=== PATIENT | female | born 1990 | race Caucasian/White ===

== ENCOUNTER 2016-11-30 23:38 | Emergency (ER) | payer OTHER ==
[~2016-11-30] VITALS: Ht 167.6 cm; Wt 88.0 kg
[~2016-11-30 23:38] MED LIST: AMBI10TA PO; ASPI81TA82 PO; CYMB60CA PO; DUONI NEB; HYDR200T42 PO; IBUP600T26 PO; LAMO150T PO; LEVO125T48 PO; LISI-357 PO; METF-324 PO; METHO500 PO; METO50TA PO; MYCO200S PO; MYCO500T PO; OMEP20TA39 PO; ONDA4TAB7 SL; OXYC-68 PO; PERC10TA27 PO; PRAV20TA67 PO; PROV2.5T OR
[2016-11-30 23:43] VITALS: BP_SYST 178; BP_SYST 186; BP_DIAS 113; BP_DIAS 117; PULSE 94; RESP 16; TEMP 98.6; O2SAT 100
[2016-11-30] MEDS ORDERED: HYDR-3533 PO (23:55)
[2016-11-30] MEDS ORDERED: ROBA500T PO (23:55)
[2016-12-01] MEDS ORDERED: METHOCARBAMOL 500 MG TAB PO ONE
[2016-12-01] MEDS ORDERED: ACETAMINOPHEN/HYDROcodone 325 MG/5 MG TAB PO ONE
[2016-12-01] MEDS ORDERED: amLODIPine BESYLATE 5 MG TAB PO ONE
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
== END 2016-12-01 00:33 | disposition home or self-care (01) ==
LOC: NEPK 23:38
DX: S16.1XXA Strain of muscle, fascia and tendon at neck level, initial encounter (principal); I10 Essential (primary) hypertension; M25.511 Pain in right shoulder; J45.909 Unspecified asthma, uncomplicated; V43.52XA Car driver injured in collision with other type car in traffic accident, initial encounter; Y92.410 Unspecified street and highway as the place of occurrence of the external cause
CPT/HCPCS: 99283

== ENCOUNTER 2017-06-10 10:20 | Emergency (ER) | payer OTHER ==
[~2017-06-10] VITALS: Ht 160 cm; Wt 93.0 kg
[~2017-06-10 10:20] MED LIST changes: +HYDR-3533 PO; +ROBA500T PO
[2017-06-10 10:23] VITALS: BP 123/83; PULSE 83; RESP 16; TEMP 98.3; O2SAT 98
[2017-06-10] MEDS ORDERED: SODIUM CHLOR 0.9% 1000 ML INJ 1,000 ML IV SCH (11:39)
[2017-06-10] MEDS ORDERED: SODIUM CHLORIDE 0.9% FLUSH 10 ML FLUSH IV FLUSH PRN (11:45)
[2017-06-10] MEDS ORDERED: MORPHINE SULFATE 4 MG/ML INJ IV PUSH ONE (11:45)
[2017-06-10] MEDS ORDERED: ONDANSETRON HCL 4 MG/2 ML VIAL IVP ONE (11:45)
[2017-06-10] MEDS ORDERED: FAMOTIDINE 20 MG/2 ML VIAL IV PUSH ONE (11:45)
--- NOTE | 2017-06-10 11:48 | PD ---
HPI Chief Complaint: Abdominal Pain Time Seen by Provider: 11:34 Travel History International Travel<30 days: No Contact w/Intl Traveler<30days: No Traveled to known affect area: No History of Present Illness HPI Patient is a 26-year-old female who presents to emergency room with complaints of abdominal pain. Patient reports that since 2 PM yesterday afternoon, had epigastric to left upper quadrant abdominal pain which radiates her back. Patient denies any nausea or vomiting, denies any constipation or diarrhea with her symptoms. Reports that overall, she has had decreased oral intake since last night. Patient reports that pain is persisting, nothing makes her pain better or worse. Patient describes the pain as mild and progressively getting worse today. Patient denies any fevers or chills, denies any chest pain or shortness of breath, patient with no other complaints at this time. PFSH Past Medical History Asthma: Yes Autoimmune Disease: Yes (I.T.P.) Blood Disorders: Yes (ITP) Anxiety: No Depression: No Cancer: No Cardiovascular Problems: No Diabetes: No Diminished Hearing: No Endocrine: No Gastrointestinal Disorders: Yes (LUPUS, LIVER DISEASE, PCOS, ITP, SHOGRANS, GERD) Glaucoma: No Genitourinary: No Headaches: Yes Hepatitis: No Hiatal Hernia: No Hypertension: No Immune Disorder: Yes (ANTIPHOSPHOLIPID ANTIBODY SYNDROM) Musculoskeletal: No Neurologic: Yes (HEADACHES, NECK ACHES) Psychiatric: No Reproductive: No Respiratory: Yes (ASTHMA) Immunizations Current: Yes Thyroid Disease: Yes (HYPOTHYROID) ?: Not LMP: 05/25/17 Menopausal: No : 0 Past Surgical History Abdominal Surgery: Yes (APPENDECTOMY, GALLBLADDER) AICD: No Cardiac Surgery: No Ear Surgery: No Endocrine Surgery: Yes (HYPOTHYROIDISM) Eye Surgery: No Genitourinary Surgery: No Gynecologic Surgery: No Joint Replacement: No Neurologic Surgery: No Oral Surgery: No Pacemaker: No Thoracic Surgery: No Other Surgery: Yes Social History Alcohol Use: No Tobacco Use: No Substance Use: No Allergies-Medications (Allergen,Severity, Reaction): Coded Allergies: Rho(D) immune globulin (Verified Allergy, Severe, SEIZURES, 06/10/17) amoxicillin (Verified Allergy, Severe, RASH, 06/10/17) clavulanic acid (Verified Allergy, Severe, RASH, 06/10/17) egg (Verified Allergy, Severe, 06/10/17) ethinyl estradiol (Verified Allergy, Severe, Nausea/Vomiting, 06/10/17) levonorgestrel (Verified Allergy, Severe, Nausea/Vomiting, 06/10/17) Reported Meds & Prescriptions Reported Meds & Active Scripts Active Reported [ control] 1 Tab DAILY ortho-tricyclen Wellbutrin Xl 24 HR (Bupropion HCl) 300 Mg Tab 300 Mg PO DAILY Benazepril (Benazepril HCl) 20 Mg Tab 20 Mg PO DAILY Amlodipine (Amlodipine Besylate) 5 Mg Tab 5 Mg PO DAILY Metformin (Metformin HCl) 500 Mg Tab 500 Mg PO BIDPC Review of Systems General / Constitutional: No: Fever, Chills Eyes: No: Visual changes HENT: No: Headaches Cardiovascular: No: Chest Pain or Discomfort, Palpitations, Irregular Rhythm Respiratory: No: Cough, Shortness of Breath Gastrointestinal: Positive: Abdominal Pain, Loss of Appetite, No: Nausea, Vomiting, Diarrhea, Constipation Genitourinary: No: Dysuria Musculoskeletal: No: Pain Skin: No Rash Neurologic: No: Weakness Psychiatric: No: Depression Endocrine: No: Polydipsia Hematologic/Lymphatic: No: Easy Bruising Physical Exam Narrative GENERAL: NAD SKIN: Focused skin assessment warm/dry. HEAD: Atraumatic. Normocephalic. EYES: Pupils equal and round. No scleral icterus. No injection or drainage. ENT: No nasal bleeding or discharge. Mucous membranes pink and moist. NECK: Trachea midline. No JVD. CARDIOVASCULAR: Regular rate and rhythm. No murmur appreciated. RESPIRATORY: No accessory muscle use. Clear to auscultation. Breath sounds equal bilaterally. GASTROINTESTINAL: Abdomen soft, tenderness to LUQ, nondistended. Hepatic and splenic margins not palpable. MUSCULOSKELETAL: No obvious deformities. No clubbing. No cyanosis. No edema. NEUROLOGICAL: Awake and alert. No obvious cranial nerve deficits. Motor grossly within normal limits. Normal speech. PSYCHIATRIC: Anxious mood and affect; insight and judgment normal. Data Data Last Documented VS Vital Signs Date Time Temp Pulse Resp B/P (MAP) Pulse Ox O2 Delivery O2 Flow Rate FiO2 06/10/17 14:00 93 19 128/64 (85) 99 Room Air 06/10/17 10:23 98.3 Orders Orders Complete Blood Count With Diff (06/10/17 11:19) Comprehensive Metabolic Panel (06/10/17 11:19) Lipase (06/10/17 11:19) Urinalysis - C+S If Indicated (06/10/17 11:19) Ed Urine Pregnancytest Poc (06/10/17 11:19) Iv Access Insert/Monitor (06/10/17 11:39) Ecg Monitoring (06/10/17 11:39) Oximetry (06/10/17 11:39) Morphine Inj (Morphine Inj) (06/10/17 11:45) Ondansetron Inj (Zofran Inj) (06/10/17 11:45) Sodium Chlor 0.9% 1000 Ml Inj (Ns 1000 M (06/10/17 11:39) Sodium Chloride 0.9% Flush (Ns Flush) (06/10/17 11:45) Famotidine Inj (Pepcid Inj) (06/10/17 11:45) Ct Abd/Pel W/O Iv Contrast (06/10/17 11:39) Labs Laboratory Tests Test 06/10/17 11:30 White Blood Count 11.8 TH/MM3 Red Blood Count 3.91 MIL/MM3 Hemoglobin 11.7 GM/DL Hematocrit 34.4 % Mean Corpuscular Volume 87.9 FL Mean Corpuscular Hemoglobin 29.8 PG Mean Corpuscular Hemoglobin Concent 33.9 % Red Cell Distribution Width 14.4 % Platelet Count 251 TH/MM3 Mean Platelet Volume 8.0 FL Neutrophils (%) (Auto) 78.2 % Lymphocytes (%) (Auto) 11.6 % Monocytes (%) (Auto) 7.9 % Eosinophils (%) (Auto) 1.9 % Basophils (%) (Auto) 0.4 % Neutrophils # (Auto) 9.2 TH/MM3 Lymphocytes # (Auto) 1.4 TH/MM3 Monocytes # (Auto) 0.9 TH/MM3 Eosinophils # (Auto) 0.2 TH/MM3 Basophils # (Auto) 0.0 TH/MM3 CBC Comment AUTO DIFF Differential Comment AUTO DIFF CONFIRMED Urine Color YELLOW Urine Turbidity HAZY Urine pH 6.0 Urine Specific [place] 1.020 Urine Protein 300 mg/dL Urine Glucose (UA) NEG mg/dL Urine Ketones NEG mg/dL Urine Occult Blood SMALL Urine Nitrite NEG Urine Bilirubin NEG Urine Urobilinogen LESS THAN 2.0 MG/DL Urine Leukocyte Esterase NEG Urine RBC 1 /hpf Urine WBC 2 /hpf Urine Squamous Epithelial Cells 3 /hpf Urine Bacteria RARE /hpf Urine Mucus FEW /lpf Microscopic Urinalysis Comment CULT NOT INDICATED Blood Urea Nitrogen 30 MG/DL Creatinine 1.79 MG/DL Random Glucose 77 MG/DL Total Protein 8.6 GM/DL Albumin 3.6 GM/DL Calcium Level 9.9 MG/DL Alkaline Phosphatase 89 U/L Aspartate Amino Transf (AST/SGOT) 58 U/L Alanine Aminotransferase (ALT/SGPT) 104 U/L Total Bilirubin 0.9 MG/DL Sodium Level 133 MEQ/L Potassium Level 4.4 MEQ/L Chloride Level 103 MEQ/L Carbon Dioxide Level 21.5 MEQ/L Anion Gap 9 MEQ/L Estimat Glomerular Filtration Rate 35 ML/MIN Lipase 190 U/L MDM Medical Decision Making Medical Screen Exam Complete: Yes Emergency Medical Condition: Yes Medical Record Reviewed: Yes Interpretation(s) Vital Signs Date Time Temp Pulse Resp B/P (MAP) Pulse Ox O2 Delivery O2 Flow Rate FiO2 06/10/17 10:23 98.3 83 16 123/83 ( 98 Differential Diagnosis Gastritis, gastroenteritis, gastric ulcer, pancreatitis, electrolyte abnormality Narrative Course 26-year-old female who presents to emergency room with complaints of epigastric to left upper quadrant abdominal pain and radiates to her back which has been ongoing since 2 PM yesterday afternoon. During the course of the patients emergency department visit, the patients history, examination, and differential diagnosis were reviewed with the patient. The patient was placed on a rn cardiac rehab with oximetry and frequent blood pressure monitoring. The patient had a 20-gauge IV access obtained and blood work sent for analysis. The patient was initially provided IV fluids, IV Zofran, IV Pepcid The patients laboratory studies were reviewed and remarkable for: CBC & BMP Diagram 06/10/17 11:30 Total Protein 8.6 H, Albumin 3.6, Calcium Level 9.9, Alkaline Phosphatase 89, Aspartate Amino Transf (AST/SGOT) 58 H, Alanine Aminotransferase (ALT/SGPT) 104 H, Total Bilirubin 0.9 CR 1.79 which is at baseline Radiology studies were reviewed and remarkable for: Last Impressions Abdomen/Pelvis CT 06/10/17 [id number] Signed Impressions: Service Date/Time: June 14:19 - CONCLUSION: 1. Left lower lobe airspace disease. 2. Hepatosplenomegaly. 3. Hypodense liver characteristic of steatosis. 4. No other significant abnormality. Dhiraj Ferrer MD Ct of abdomen and pelvis with left lower lobe airspace disease, hepatosplenomegaly, hypodense liver characteristic of steatosis. there were no significant abnormalities. Patient is feeling much better at this time, abdomen is soft, nontender, nondistended, no peritoneal signs. Plan for patient to follow up with primary care doctor as well as career and guidance counselor, she will return to the emergency room as needed. All labs and studies as well as incidental findings were reviewed with patient in detail. She will return to ER as needed. Discussed need for her to follow up with career and guidance counselor. A copy of pt's labs and studies will be given to her at discharge as she will need to follow up with all studies from today Diagnosis Primary Impression: Abdominal pain Qualified Codes: R10.12 - Left upper quadrant pain Additional Impressions: Gastritis Qualified Codes: K29.70 - Gastritis, unspecified, without bleeding Renal insufficiency Patient Instructions: General Instructions Additional Instructions: Please provide patient with a copy of their lab work and studies at discharge* * Please follow up with your primary care doctor in 2-3 days Return to the ER if symptoms worsen or progress Return to the ER as needed Please follow-up with a career and guidance counselor as soon as possible Med/Other Pt SpecificInfo: Prescription(s) given Scripts Pantoprazole (Protonix) 40 Mg Tab 40 MG PO DAILY for Reflux, #30 TAB 0 Refills Prov: Julia Mina DO 06/10/17 Disposition: 01 DISCHARGE HOME Condition: Stable Julia Mina DO Jun 10, 2017 11:48
[2017-06-10] MEDS ORDERED: WELLTAB39 PO (11:53)
[2017-06-10] MEDS ORDERED: BENA20TA PO (11:53)
[2017-06-10] MEDS ORDERED: AMLO5TAB2 PO (11:53)
[2017-06-10] MEDS ORDERED: birth control (11:53)
[2017-06-10] MEDS ORDERED: METF500T PO (11:53)
[2017-06-10 11:54] VITALS: O2SAT 97
[2017-06-10 12:02] LABS: AUTOMATED NEUTROPHIL # 9.2 TH/MM3 (1.8-7.7); BASOPHIL % 0.4 % (0.0-2.0); EOSINOPHIL # 0.2 TH/MM3 (0-0.4); EOSINOPHIL % 1.9 % (0.0-4.0); HEMATOCRIT 34.4 % (35.0-46.0); LYMPH % 11.6 % (9.0-44.0); LYMPHOCYTE # 1.4 TH/MM3 (1.0-4.8); MEAN CELL VOLUME 87.9 FL (80.0-100.0); MEAN CORPUSCULAR HEMOGLOBIN 29.8 PG (27.0-34.0); MEAN CORPUSCULAR HGB CONC 33.9 % (32.0-36.0); MONO % 7.9 % (0.0-8.0); NEUT % 78.2 % (16.0-70.0); PLATELET COUNT 251 TH/MM3 (150-450); RED BLOOD COUNT 3.91 MIL/MM3 (4.00-5.30); RED CELL DISTRIBUTION WIDTH 14.4 % (11.6-17.2); WHITE BLOOD COUNT 11.8 TH/MM3 (4.0-11.0)
[2017-06-10 12:04] LABS: HEMO FLAGS AUTO DIFF
[2017-06-10 12:09] LABS: BACTERIA, URINE RARE /hpf; BLOOD, URINE SMALL (NEG); GLUCOSE,URINE NEG (NEG); KETONE, URINE NEG (NEG); MUCUS URINE FEW /lpf (OCC); NITRITE,URINE NEG (NEG); SQUAMOUS EPITHELIAL CELL URINE 3 /hpf (0-5); URINE COLOR YELLOW (YELLW/STRAW)
[2017-06-10 12:14] LABS: COMMENT (UR) CULT NOT INDICATED; CULTURE IF INDICATED CULT NOT INDICATED
[2017-06-10 12:16] LABS: ANION GAP 9 MEQ/L (5-15); AST (GOT) 58 U/L (15-37); BICARBONATE 21.5 MEQ/L (21.0-32.0); BLOOD UREA NITROGEN 30 MG/DL (7-18); CHLORIDE 103 MEQ/L (98-107); GLOMERULAR FILTRATION RATE 35 ML/MIN (>89); POTASSIUM 4.4 MEQ/L (3.5-5.1); SODIUM (NA) 133 MEQ/L (136-145)
[2017-06-10 12:18] LABS: ALT (GPT) 104 U/L (10-53)
[2017-06-10 12:20] LABS: ALKALINE PHOSPHATASE 89 U/L (45-117); TOTAL BILIRUBIN ADULT 0.9 MG/DL (0.2-1.0)
[2017-06-10 12:35] LABS: SCAN/DIFF AUTO DIFF CONFIRMED
[2017-06-10 14:00] VITALS: BP 128/64; PULSE 93; RESP 19; O2SAT 99
--- NOTE | 2017-06-10 14:55 | RADRPT ---
EXAM DATE/TIME: 06/10/2017 14:19 [facility] COMPARISON: No previous studies available for comparison. INDICATIONS : Epigastric pain radiating into back with nausea and vomiting ORAL CONTRAST: No oral contrast ingested. RADIATION DOSE: 16.12 CTDIvol (mGy) MEDICAL HISTORY : Lupus. Renal insufficiency, chronic. SURGICAL HISTORY : None. ENCOUNTER: Initial ACUITY: 1 day PAIN SCALE: 6/10 LOCATION: Epigastric TECHNIQUE: Volumetric scanning of the abdomen and pelvis was performed. Using automated exposure control and ad justment of the mA and/or kV according to patient size, radiation dose was kept as low as reasonably achievable to obtain optimal diagnostic quality images. DICOM format image data is available electro nically for review and comparison. FINDINGS: LOWER LUNGS: Airspace disease is identified in the left lower lobe. LIVER: Liver is diffusely hypodense and enlarged. It measures 21 cm in craniocaudad dimension. There are no focal lesions or evidence of biliary duct dilatation. SPLEEN: Moderately enlarged measuring 15 cm in craniocaudad dimension. PANCREAS: Within normal limits. KIDNEYS: Normal in size and shape. There is no mass, stone, or hydronephrosis. ADRENAL GLANDS: Within normal limits. VASCULAR: There is no aortic aneurysm. BOWEL/MESENTERY: The stomach, small bowel, and colon demonstrate no acute abnormality. There is no free intraperitone al air or fluid. ABDOMINAL WALL: Within normal limits. RETROPERITONEUM: There is no lymphadenopathy. BLADDER: No wall thickening or mass. REPRODUCTIVE: Within normal limits. INGUINAL: There is no lymphadenopathy or hernia. MUSCULOSKELETAL: Within normal limits for patient age. CONCLUSION: 1. Left lower lobe airspace disease. 2. Hepatosplenomegaly. 3. Hypodense liver characteristic of steatosis. 4. No other significant abnormality. Dhiraj Ferrer MD on June 10, 2017 at 14:50 Board Certified Radiologist. This report was verified electronically.
[2017-06-10] MEDS ORDERED: PROT40TA PO (15:12)
[2017-06-10] MEDS ORDERED: ALUMINUM/MAGNESIUM/SIMETH 30 ML CUP PO ONE (15:15)
[2017-06-10] MEDS ORDERED: LIDOCAINE VISCOUS 2% SOLN 15 ML UDC PO ONE (15:15)
== END 2017-06-10 15:54 | disposition home or self-care (01) ==
LOC: NEPD 10:20
DX: R10.12 Left upper quadrant pain (principal); K29.70 Gastritis, unspecified, without bleeding; N28.9 Disorder of kidney and ureter, unspecified; R16.2 Hepatomegaly with splenomegaly, not elsewhere classified; J45.909 Unspecified asthma, uncomplicated; D69.3 Immune thrombocytopenic purpura; M32.9 Systemic lupus erythematosus, unspecified; D68.61 Antiphospholipid syndrome; K21.9 Gastro-esophageal reflux disease without esophagitis
CPT/HCPCS: 74176; 80053; 81001; 83690; 84703; 85025; 96361; 96374; 96375; 99285; J2270; J2405; J7030

== ENCOUNTER 2017-06-12 14:25 | Emergency (ER) | payer OTHER ==
[~2017-06-12] VITALS: Ht 160 cm; Wt 100.0 kg
[~2017-06-12 14:25] MED LIST changes: -AMBI10TA PO; +AMLO5TAB2 PO; -ASPI81TA82 PO; +BENA20TA PO; -CYMB60CA PO; -DUONI NEB; -HYDR-3533 PO; -HYDR200T42 PO; -IBUP600T26 PO; -LAMO150T PO; -LEVO125T48 PO; -LISI-357 PO; -METF-324 PO; +METF500T PO; -METHO500 PO; -METO50TA PO; -MYCO200S PO; -MYCO500T PO; -OMEP20TA39 PO; -ONDA4TAB7 SL; -OXYC-68 PO; -PERC10TA27 PO; -PRAV20TA67 PO; +PROT40TA PO; -PROV2.5T OR; -ROBA500T PO; +WELLTAB39 PO; +birth control
[2017-06-12 14:28] VITALS: BP 134/87; PULSE 111; TEMP 99.5; O2SAT 98
--- NOTE | 2017-06-12 15:06 | PD ---
HPI Chief Complaint: Abdominal Pain Time Seen by Provider: 14:44 Travel History International Travel<30 days: No Contact w/Intl Traveler<30days: No Traveled to known affect area: No History of Present Illness HPI 26-year-old female presents to emergency Department with complaint of continued left upper quadrant abdominal pain that is 10 times worse after being seen 2 days ago here at [facility] for the same complaint. Pain is intermittent. She says it feels like "her body is ripping open." Pain is worse with deep breathing, eating, moving, palpation. No known relieving factors. Denies fever at home but says she had a fever when she checked in to the ER. Denies nausea, vomiting. Denies chest pain, shortness of breath. Denies change in stool or urine. Had a normal bowel movement this morning without hematochezia. Denies dysuria. Has been taking Protonix as prescribed 2 days ago with no change in symptoms. Denies any recent illness to include cough, nasal congestion, sore throat. Rates pain 7/10. Describes it as a stabbing sensation when it occurs. Dr. Gutierres with primary care provider. History of asthma, lupus, PCOS, Michael's, ITP. History of appendectomy and cholecystectomy. Allergies as listed on the chart. Has no other medical complaints. No other modifying factors or associated signs and symptoms. PFSH Past Medical History Asthma: Yes Autoimmune Disease: Yes (I.T.P.) Blood Disorders: Yes (ITP) Anxiety: No Depression: No Cancer: No Cardiovascular Problems: No Diabetes: No Diminished Hearing: No Endocrine: No Gastrointestinal Disorders: Yes (LUPUS, LIVER DISEASE, PCOS, ITP, SHOGRANS, GERD) Glaucoma: No Genitourinary: No Headaches: Yes Hepatitis: No Hiatal Hernia: No Hypertension: No Immune Disorder: Yes (ANTIPHOSPHOLIPID ANTIBODY SYNDROME) Musculoskeletal: No Neurologic: Yes (HEADACHES, NECK ACHES) Psychiatric: No Reproductive: No Respiratory: Yes (ASTHMA) Immunizations Current: Yes Migraines: Yes Thyroid Disease: Yes (HYPOTHYROID) ?: Not Menopausal: No : 0 Past Surgical History Abdominal Surgery: Yes (APPENDECTOMY, GALLBLADDER) AICD: No Appendectomy: Yes Cardiac Surgery: No Cholecystectomy: Yes Ear Surgery: No Endocrine Surgery: Yes (HYPOTHYROIDISM) Eye Surgery: No Genitourinary Surgery: No Gynecologic Surgery: No Joint Replacement: No Neurologic Surgery: No Oral Surgery: No Pacemaker: No Thoracic Surgery: No Other Surgery: Yes Social History Alcohol Use: Yes (on occasion) Tobacco Use: No Substance Use: No Allergies-Medications (Allergen,Severity, Reaction): Coded Allergies: Rho(D) immune globulin (Verified Allergy, Severe, SEIZURES, 06/12/17) amoxicillin (Verified Allergy, Severe, DENIES, 06/12/17) clavulanic acid (Verified Allergy, Severe, RASH, 06/12/17) egg (Verified Allergy, Severe, HIVES/SWELLING, 06/12/17) ethinyl estradiol (Verified Allergy, Severe, Nausea/Vomiting, 06/12/17) levonorgestrel (Verified Allergy, Severe, Nausea/Vomiting, 06/12/17) Reported Meds & Prescriptions Reported Meds & Active Scripts Active Arjay (Hydrocodone-Acetaminophen) 5 Mg-325 Mg Tab 1 Tab PO Q4H PRN Levofloxacin 500 Mg Tablet 500 Mg PO DAILY 10 Days Ibuprofen 800 Mg Tab 800 Mg PO Q6HR PRN Protonix (Pantoprazole Sodium) 40 Mg Tab 40 Mg PO DAILY Reported Qtgzqhvklp-Aoevagcfxvfbs-Uxxduxfr 50-325-40 Mg Tab 1 Tab PO Q4H PRN Do not exceed 6 tablets/day. Ventolin Hfa 18 GM Inh (Albuterol Sulfate) 90 Mcg/Act Aer 2 Puff INH Q6H PRN [ control] 1 Tab DAILY ortho-tricyclen Wellbutrin Xl 24 HR (Bupropion HCl) 300 Mg Tab 300 Mg PO DAILY Benazepril (Benazepril HCl) 20 Mg Tab 20 Mg PO DAILY Amlodipine (Amlodipine Besylate) 5 Mg Tab 5 Mg PO DAILY Metformin (Metformin HCl) 500 Mg Tab 500 Mg PO BIDPC Review of Systems Except as stated in HPI: all other systems reviewed are Neg Physical Exam Narrative GENERAL: Well-nourished, well-developed female patient, in no acute distress; low-grade fever 99.5 SKIN: Warm and dry. HEAD: Atraumatic. Normocephalic. EYES: Pupils equal and round. No scleral icterus. No injection or drainage. ENT: Mucosa pink and moist. Airway patent. NECK: Trachea midline. CHEST: Reproducible tenderness to the left lateral rib cage area; without crepitance or deformity. CARDIOVASCULAR: Regular rate and rhythm. No murmur appreciated. RESPIRATORY: No accessory muscle use. Breath sounds clear and equal bilaterally. No retractions or tachypnea. GASTROINTESTINAL: Abdomen soft, tenderness to left upper quadrant, nondistended. Patient guarding to left upper quadrant on palpation. No hepatosplenomegaly on palpation. Nonrigid. MUSCULOSKELETAL: No obvious deformities. No clubbing. No cyanosis. No edema. NEUROLOGICAL: Awake and alert. Oriented 3. No obvious cranial nerve deficits. Motor grossly within normal limits. Normal speech. PSYCHIATRIC: Appropriate mood and affect; insight and judgment normal. Data Data Last Documented VS Vital Signs Date Time Temp Pulse Resp B/P (MAP) Pulse Ox O2 Delivery O2 Flow Rate FiO2 06/12/17 16:14 84 18 140/72 (94) 97 06/12/17 14:28 99.5 Orders Orders Chest, Single Ap (06/12/17 15:06) Complete Blood Count With Diff (06/12/17 15:14) Comprehensive Metabolic Panel (06/12/17 15:14) Lipase (06/12/17 15:14) Iv Access Insert/Monitor (06/12/17 15:14) Sodium Chlor 0.9% 1000 Ml Inj (Ns 1000 M (06/12/17 15:14) Sodium Chloride 0.9% Flush (Ns Flush) (06/12/17 15:15) Ketorolac Inj (Toradol Inj) (06/12/17 15:15) Resp Incentive Spirometry (06/12/17 ) Acetamin-Hydrocod 325-5 Mg (Arjay 5-325 (06/12/17 16:15) Ed Discharge Order (06/12/17 16:13) Labs Laboratory Tests Test 06/12/17 15:20 White Blood Count 10.4 TH/MM3 Red Blood Count 3.30 MIL/MM3 Hemoglobin 10.3 GM/DL Hematocrit 28.8 % Mean Corpuscular Volume 87.4 FL Mean Corpuscular Hemoglobin 31.1 PG Mean Corpuscular Hemoglobin Concent 35.6 % Red Cell Distribution Width 14.5 % Platelet Count 258 TH/MM3 Mean Platelet Volume 8.1 FL Neutrophils (%) (Auto) 76.6 % Lymphocytes (%) (Auto) 12.6 % Monocytes (%) (Auto) 8.0 % Eosinophils (%) (Auto) 2.3 % Basophils (%) (Auto) 0.5 % Neutrophils # (Auto) 8.0 TH/MM3 Lymphocytes # (Auto) 1.3 TH/MM3 Monocytes # (Auto) 0.8 TH/MM3 Eosinophils # (Auto) 0.2 TH/MM3 Basophils # (Auto) 0.1 TH/MM3 CBC Comment DIFF FINAL Differential Comment Blood Urea Nitrogen 25 MG/DL Creatinine 1.68 MG/DL Random Glucose 100 MG/DL Total Protein 7.6 GM/DL Albumin 3.0 GM/DL Calcium Level 8.6 MG/DL Alkaline Phosphatase 91 U/L Aspartate Amino Transf (AST/SGOT) 47 U/L Alanine Aminotransferase (ALT/SGPT) 77 U/L Total Bilirubin 0.9 MG/DL Sodium Level 136 MEQ/L Potassium Level 4.6 MEQ/L Chloride Level 105 MEQ/L Carbon Dioxide Level 22.7 MEQ/L Anion Gap 8 MEQ/L Estimat Glomerular Filtration Rate 37 ML/MIN Lipase 220 U/L MDM Medical Decision Making Medical Screen Exam Complete: Yes Emergency Medical Condition: Yes Medical Record Reviewed: Yes Differential Diagnosis Splenomegaly, pancreatitis, pneumonia, muscle strain Narrative Course 26-year-old female seen for the same complaint of left upper quadrant abdominal pain 2 days ago on June 10. She had CT abdomen/pelvis which concluded his left lower lobe airspace disease, hepatosplenomegaly, steatosis. Labs 2 days ago concluded: CBC unremarkable, AST 58, ALT 104, sodium 133, BUN 30, creatinine 1.79; Urinalysis with no signs of infection. The patient was given Protonix for home. She returns with worsening and continued pain. On physical exam the patient discharged left upper quadrant abdominal pain and tenderness over the left lateral rib cage without crepitance or deformity. She denies chest pain or shortness of breath. I discussed the patient with Dr. Sanchez, my attending physician, and he agrees to plan of care. IV site obtained. Normal saline fluid bolus, CBC, CMP, lipase, chest xray, Toradol ordered. 1605: Chest x-ray concludes: Chest X-Ray 06/12/17 1506 Signed Impressions: Service Date/Time: Monday, June 12, 2017 15:09 - CONCLUSION: Left basilar infiltrate with associated effusion. Piero Barker MD Chest x-ray findings discussed with the patient. I discussed the patient with Dr. Mueller, he agrees with my treatment plan and plan for discharge. Levaquin , Lortab, ibuprofen prescribed for home. Lortab administered in the ER. Attentive spirometer provided for him for deep breathing exercises. Instructed patient to follow up with primary care provider. Patient verbalizes understanding and agreement with treatment plan. Patient is medically cleared and stable for discharge. Discussed reasons to return to the emergency department. Patient agrees with treatment plan. The patients vital signs are stable and the patient is stable for outpatient follow-up and treatment. Patient discharged home, stable and in no acute distress. Diagnosis Primary Impression: Pneumonia Qualified Codes: J18.1 - Lobar pneumonia, unspecified organism Referrals: Primary Care Physician Patient Instructions: Community Acquired Pneumonia (ED), General Instructions Departure Forms: Tests/Procedures, Work Release Enter return to work date: Jun 15, 2017 Additional Instructions: Ibuprofen or Tylenol as directed and as needed to reduce fever; may alternate ibuprofen and Tylenol as needed every 3 hours to minimize fever Use an air humidifier/turn off ceiling fans Incentives barometer every 2 hours while awake Follow-up with your primary care provider within 1 day Return immediately to the emergency department with worsening of symptoms Med/Other Pt SpecificInfo: Prescription(s) given Scripts Hydrocodone-Acetaminophen (Arjay) 5 Mg-325 Mg Tab 1 TAB PO Q4H Y for PAIN, #8 TAB 0 Refills Prov: Savana Meek 06/12/17 Levofloxacin (Levofloxacin) 500 Mg Tablet 500 MG PO DAILY for Infection for 10 Days, #10 TAB 0 Refills Prov: Savana Meek 06/12/17 Ibuprofen (Ibuprofen) 800 Mg Tab 800 MG PO Q6HR Y for PAIN, #30 TAB 0 Refills Prov: Savana Meek 06/12/17 Disposition: 01 DISCHARGE HOME Condition: Stable Savana Meek Jun 12, 2017 15:06
[2017-06-12] MEDS ORDERED: VENTAER INH (15:12)
[2017-06-12] MEDS ORDERED: BUTATAB6 PO (15:12)
[2017-06-12] MEDS ORDERED: SODIUM CHLOR 0.9% 1000 ML INJ 1,000 ML IV SCH (15:14)
[2017-06-12] MEDS ORDERED: KETOROLAC TROMETHAMINE 30 MG/ML (IVP) VIAL IV PUSH ONE (15:15)
[2017-06-12] MEDS ORDERED: SODIUM CHLORIDE 0.9% FLUSH 10 ML FLUSH IV FLUSH PRN (15:15)
--- NOTE | 2017-06-12 15:43 | RADRPT ---
EXAM DATE/TIME: 06/12/2017 15:09 [facility] COMPARISON: No previous studies available for comparison. INDICATIONS : Rib pain. MEDICAL HISTORY : Lupus. Hypertension PCOS, Hashimotos, migraines. SURGICAL HISTORY : None. ENCOUNTER: Initial ACUITY: 4 - 6 days PAIN SCORE: 10/10 LOCATION: Left chest inferior, anterior and posterior. FINDINGS: A single view of the chest demonstrates left basilar consolidation and associated effusion. Right ivory g is clear. Heart size is normal. CONCLUSION: Left basilar infiltrate with associated effusion. Piero Barker MD on June 12, 2017 at 15:41 Board Certified Radiologist. This report was verified electronically.
[2017-06-12 15:50] LABS: BASOPHIL # 0.1 TH/MM3 (0-0.2); BASOPHIL % 0.5 % (0.0-2.0); EOSINOPHIL # 0.2 TH/MM3 (0-0.4); EOSINOPHIL % 2.3 % (0.0-4.0); HEMATOCRIT 28.8 % (35.0-46.0); HEMO FLAGS DIFF FINAL; LYMPH % 12.6 % (9.0-44.0); LYMPHOCYTE # 1.3 TH/MM3 (1.0-4.8); MEAN CELL VOLUME 87.4 FL (80.0-100.0); MEAN CORPUSCULAR HEMOGLOBIN 31.1 PG (27.0-34.0); MEAN CORPUSCULAR HGB CONC 35.6 % (32.0-36.0); NEUT % 76.6 % (16.0-70.0); PLATELET COUNT 258 TH/MM3 (150-450); RED CELL DISTRIBUTION WIDTH 14.5 % (11.6-17.2); WHITE BLOOD COUNT 10.4 TH/MM3 (4.0-11.0)
[2017-06-12 15:59] LABS: ALKALINE PHOSPHATASE 91 U/L (45-117); ALT (GPT) 77 U/L (10-53); ANION GAP 8 MEQ/L (5-15); AST (GOT) 47 U/L (15-37); BICARBONATE 22.7 MEQ/L (21.0-32.0); BLOOD UREA NITROGEN 25 MG/DL (7-18); CHLORIDE 105 MEQ/L (98-107); GLOMERULAR FILTRATION RATE 37 ML/MIN (>89); POTASSIUM 4.6 MEQ/L (3.5-5.1); SODIUM (NA) 136 MEQ/L (136-145); TOTAL BILIRUBIN ADULT 0.9 MG/DL (0.2-1.0)
[2017-06-12] MEDS ORDERED: NORC5TAB PO (16:07)
[2017-06-12] MEDS ORDERED: IBUP1TAB7 PO (16:07)
[2017-06-12] MEDS ORDERED: LEVO500T8 PO (16:07)
[2017-06-12 16:14] VITALS: BP 140/72
[2017-06-12] MEDS ORDERED: ACETAMINOPHEN/HYDROcodone 325 MG/5 MG TAB PO ONE (16:15)
== END 2017-06-12 17:46 | disposition home or self-care (01) ==
LOC: NEPD 14:25
DX: J18.9 Pneumonia, unspecified organism (principal); J45.909 Unspecified asthma, uncomplicated; M32.9 Systemic lupus erythematosus, unspecified; E28.2 Polycystic ovarian syndrome; E06.3 Autoimmune thyroiditis; D69.3 Immune thrombocytopenic purpura; K21.9 Gastro-esophageal reflux disease without esophagitis; D68.61 Antiphospholipid syndrome; E03.9 Hypothyroidism, unspecified
CPT/HCPCS: 71010; 80053; 83690; 85025; 96361; 96374; 99284; J1885; J7030

== ENCOUNTER 2017-07-12 11:24 | Inpatient (IN) | payer OTHER ==
[~2017-07-12] VITALS: Ht 160 cm; Wt 94.6 kg
[~2017-07-12 11:24] MED LIST changes: +BUTATAB6 PO; +IBUP1TAB7 PO; +LEVO500T8 PO; +NORC5TAB PO; +VENTAER INH
[2017-07-12 11:26] VITALS: BP 163/90; PULSE 110; RESP 18; TEMP 97.9; O2SAT 95
[2017-07-12 11:39] VITALS: PULSE 104; RESP 18
--- NOTE | 2017-07-12 11:39 | PD ---
HPI Chief Complaint: Edema Time Seen by Provider: 11:34 Travel History International Travel<30 days: No Contact w/Intl Traveler<30days: No Traveled to known affect area: No History of Present Illness HPI 26-year-old female with history of lupus and antiphospholipid syndrome presents emergency department for evaluation. Patient developed right lower extremity pain about a week ago with no preceding injury. She developed increasing swelling. She had an ultrasound of the right lower extremity done today which diagnosed a right lower extremity DVT. She is to emergency department for further evaluation of this. Patient does report shortness of breath, worse with exertion. Tells me that she has been being treated for pneumonia for an entire month. She does have some moderate chest pain, mostly with deep inspiration. Patient has a known . Last menstrual cycle was June 17. She has no other symptoms to report at this time. PFSH Past Medical History Hx Anticoagulant Therapy: No Asthma: Yes (Inhailer) Autoimmune Disease: Yes (I.T.P.) Blood Disorders: Yes (ITP) Anxiety: No Depression: No Cancer: No Cardiovascular Problems: No Diabetes: No Diminished Hearing: No Endocrine: No Gastrointestinal Disorders: Yes (LUPUS, LIVER DISEASE, PCOS, ITP, SHOGRANS, GERD) Glaucoma: No Genitourinary: No Headaches: Yes Hepatitis: No Hiatal Hernia: No Hypertension: No Immune Disorder: Yes (ANTIPHOSPHOLIPID ANTIBODY SYNDROME) Musculoskeletal: No Neurologic: Yes (NECK ACHES) Psychiatric: No Reproductive: No Respiratory: Yes (ASTHMA) Immunizations Current: Yes Migraines: Yes Thyroid Disease: Yes (HYPOTHYROID) ?: Not LMP: 06/17/17 Menopausal: No : 0 Past Surgical History Abdominal Surgery: Yes (APPENDECTOMY, GALLBLADDER) AICD: No Appendectomy: Yes Cardiac Surgery: No Cholecystectomy: Yes Ear Surgery: No Endocrine Surgery: Yes (HYPOTHYROIDISM not low enough for tx) Eye Surgery: No Genitourinary Surgery: No Gynecologic Surgery: No Joint Replacement: No Neurologic Surgery: No Oral Surgery: No Pacemaker: No Thoracic Surgery: No Other Surgery: Yes Social History Alcohol Use: Yes (on occasion) Tobacco Use: No Substance Use: No Allergies-Medications (Allergen,Severity, Reaction): Coded Allergies: Rho(D) immune globulin (Verified Allergy, Severe, SEIZURES, 06/12/17) amoxicillin (Verified Allergy, Severe, DENIES, 06/12/17) clavulanic acid (Verified Allergy, Severe, RASH, 06/12/17) egg (Verified Allergy, Severe, HIVES/SWELLING, 06/12/17) ethinyl estradiol (Verified Allergy, Severe, Nausea/Vomiting, 06/12/17) levonorgestrel (Verified Allergy, Severe, Nausea/Vomiting, 06/12/17) Reported Meds & Prescriptions Reported Meds & Active Scripts Active [place] (Hydrocodone-Acetaminophen) 5 Mg-325 Mg Tab 1 Tab PO Q4H PRN Levofloxacin 500 Mg Tablet 500 Mg PO DAILY 10 Days Ibuprofen 800 Mg Tab 800 Mg PO Q6HR PRN Protonix (Pantoprazole Sodium) 40 Mg Tab 40 Mg PO DAILY Reported Qzatjpvtvf-Oztusyobxshdh-Wrgcefvj 50-325-40 Mg Tab 1 Tab PO Q4H PRN Do not exceed 6 tablets/day. Ventolin Hfa 18 GM Inh (Albuterol Sulfate) 90 Mcg/Act Aer 2 Puff INH Q6H PRN [ control] 1 Tab DAILY ortho-tricyclen Wellbutrin Xl 24 HR (Bupropion HCl) 300 Mg Tab 300 Mg PO DAILY Benazepril (Benazepril HCl) 20 Mg Tab 20 Mg PO DAILY Amlodipine (Amlodipine Besylate) 5 Mg Tab 5 Mg PO DAILY Metformin (Metformin HCl) 500 Mg Tab 500 Mg PO BIDPC Review of Systems Except as stated in HPI: all other systems reviewed are Neg Physical Exam Narrative GENERAL: Well-nourished female patient, sitting up in bed in no acute distress SKIN: Focused skin assessment warm/dry. HEAD: Atraumatic. Normocephalic. EYES: Pupils equal and round. No scleral icterus. No injection or drainage. ENT: No nasal bleeding or discharge. Mucous membranes pink and moist. NECK: Trachea midline. No JVD. CARDIOVASCULAR: Tachycardic rate and rhythm. No murmur appreciated. RESPIRATORY: No accessory muscle use. Menaced to auscultation. Breath sounds equal bilaterally. GASTROINTESTINAL: Abdomen soft, non-tender, nondistended. Hepatic and splenic margins not palpable. MUSCULOSKELETAL: No obvious deformities. No clubbing. No cyanosis. Nonpitting Mild right lower extremity edema. Distal pulses are palpable. Cap refill is within normal limits. NEUROLOGICAL: Awake and alert. No obvious cranial nerve deficits. Motor grossly within normal limits. Normal speech. PSYCHIATRIC: Appropriate mood and affect; insight and judgment normal. Data Data Last Documented VS Vital Signs Date Time Temp Pulse Resp B/P (MAP) Pulse Ox O2 Delivery O2 Flow Rate FiO2 07/12/17 11:39 104 18 07/12/17 11:26 97.9 95 Orders Orders Iv Access Insert/Monitor (07/12/17 11:48) Complete Blood Count With Diff (07/12/17 11:48) Basic Metabolic Panel (Bmp) (07/12/17 11:48) Urinalysis - C+S If Indicated (07/12/17 11:48) Ed Urine Pregnancytest Poc (07/12/17 11:48) Ct Pulmonary Angiogram (07/12/17 ) Iohexol 350 Inj (Omnipaque 350 Inj) (07/12/17 13:44) Coag Profile (07/12/17 14:00) Heparin Inj (Heparin Inj) (07/12/17 14:45) Heparin-D5w 25,000 U/250 Ml (Heparin-D5w (07/12/17 14:45) Cbc No Diff, Includes Plts (07/15/17 06:00) Act Partial Throm Time (Ptt) (07/12/17 21:34) Occult Blood (Hemoccult) Stool (07/12/17 14:34) Admit Order (Ed Use Only) (07/12/17 14:39) Labs Laboratory Tests Test 07/12/17 11:50 07/12/17 12:25 White Blood Count 10.2 TH/MM3 Red Blood Count 3.49 MIL/MM3 Hemoglobin 10.4 GM/DL Hematocrit 31.2 % Mean Corpuscular Volume 89.4 FL Mean Corpuscular Hemoglobin 29.9 PG Mean Corpuscular Hemoglobin Concent 33.4 % Red Cell Distribution Width 16.6 % Platelet Count 199 TH/MM3 Mean Platelet Volume 7.3 FL Neutrophils (%) (Auto) 73.9 % Lymphocytes (%) (Auto) 14.5 % Monocytes (%) (Auto) 4.9 % Eosinophils (%) (Auto) 6.1 % Basophils (%) (Auto) 0.6 % Neutrophils # (Auto) 7.6 TH/MM3 Lymphocytes # (Auto) 1.5 TH/MM3 Monocytes # (Auto) 0.5 TH/MM3 Eosinophils # (Auto) 0.6 TH/MM3 Basophils # (Auto) 0.1 TH/MM3 CBC Comment DIFF FINAL Differential Comment Blood Urea Nitrogen 21 MG/DL Creatinine 1.59 MG/DL Random Glucose 103 MG/DL Calcium Level 8.7 MG/DL Sodium Level 138 MEQ/L Potassium Level 4.3 MEQ/L Chloride Level 108 MEQ/L Carbon Dioxide Level 21.8 MEQ/L Anion Gap 8 MEQ/L Estimat Glomerular Filtration Rate 40 ML/MIN Urine Color YELLOW Urine Turbidity HAZY Urine pH 6.0 Urine Specific Mclean 1.018 Urine Protein 100 mg/dL Urine Glucose (UA) NEG mg/dL Urine Ketones NEG mg/dL Urine Occult Blood TRACE Urine Nitrite NEG Urine Bilirubin NEG Urine Urobilinogen LESS THAN 2.0 MG/DL Urine Leukocyte Esterase SMALL Urine RBC 3 /hpf Urine WBC 2 /hpf Urine Squamous Epithelial Cells 17 /hpf Urine Bacteria OCC /hpf Urine Mucus FEW /lpf Microscopic Urinalysis Comment CULT NOT INDICATED MDM Medical Decision Making Medical Screen Exam Complete: Yes Emergency Medical Condition: Yes Medical Record Reviewed: Yes Differential Diagnosis DVT versus PE versus cellulitis versus pneumonia versus bronchitis Narrative Course 26-year-old female presents to emergency department for evaluation. Patient appears without distress. She is tachycardic on exam. Lungs sounds are diminished. Lab work is ordered for CT pulmonary angiogram. Laboratory Tests Test 07/12/17 11:50 07/12/17 12:25 White Blood Count 10.2 TH/MM3 Red Blood Count 3.49 MIL/MM3 Hemoglobin 10.4 GM/DL Hematocrit 31.2 % Mean Corpuscular Volume 89.4 FL Mean Corpuscular Hemoglobin 29.9 PG Mean Corpuscular Hemoglobin Concent 33.4 % Red Cell Distribution Width 16.6 % Platelet Count 199 TH/MM3 Mean Platelet Volume 7.3 FL Neutrophils (%) (Auto) 73.9 % Lymphocytes (%) (Auto) 14.5 % Monocytes (%) (Auto) 4.9 % Eosinophils (%) (Auto) 6.1 % Basophils (%) (Auto) 0.6 % Neutrophils # (Auto) 7.6 TH/MM3 Lymphocytes # (Auto) 1.5 TH/MM3 Monocytes # (Auto) 0.5 TH/MM3 Eosinophils # (Auto) 0.6 TH/MM3 Basophils # (Auto) 0.1 TH/MM3 CBC Comment DIFF FINAL Differential Comment Blood Urea Nitrogen 21 MG/DL Creatinine 1.59 MG/DL Random Glucose 103 MG/DL Calcium Level 8.7 MG/DL Sodium Level 138 MEQ/L Potassium Level 4.3 MEQ/L Chloride Level 108 MEQ/L Carbon Dioxide Level 21.8 MEQ/L Anion Gap 8 MEQ/L Estimat Glomerular Filtration Rate 40 ML/MIN Urine Color YELLOW Urine Turbidity HAZY Urine pH 6.0 Urine Specific Mclean 1.018 Urine Protein 100 mg/dL Urine Glucose (UA) NEG mg/dL Urine Ketones NEG mg/dL Urine Occult Blood TRACE Urine Nitrite NEG Urine Bilirubin NEG Urine Urobilinogen LESS THAN 2.0 MG/DL Urine Leukocyte Esterase SMALL Urine RBC 3 /hpf Urine WBC 2 /hpf Urine Squamous Epithelial Cells 17 /hpf Urine Bacteria OCC /hpf Urine Mucus FEW /lpf Microscopic Urinalysis Comment CULT NOT INDICATED Last Impressions CT Angiography 07/12/17 0000 Signed Impressions: Service Date/Time: Wednesday, July 12, 2017 13:30 - CONCLUSION: 1. Multifocal bilateral pulmonary emboli. 2. Patchy infiltrates left lower lobe. 3. Hepatic steatosis. Chintan Schultz MD I discussed the patient in the findings with my attending physician. 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 be started on heparin drip. Plan is discussed with the patient and mother at bedside. Call has been placed TO [facility] for admission. I filled with Dr. Phelps. 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 be admitted to the floor Healthcare Services. Diagnosis Primary Impression: DVT (deep venous thrombosis) Qualified Codes: I82.401 - Acute embolism and thrombosis of unspecified deep veins of right lower extremity Additional Impression: Pulmonary emboli Qualified Codes: I26.99 - Other pulmonary embolism without acute cor pulmonale Admitting Information Admitting Physician Requests: Admit Condition: Stable HolmanZhen britolori JIMENEZ Jul 12, 2017 11:39
[2017-07-12 12:16] LABS: AUTOMATED NEUTROPHIL # 7.6 TH/MM3 (1.8-7.7); BASOPHIL # 0.1 TH/MM3 (0-0.2); BASOPHIL % 0.6 % (0.0-2.0); EOSINOPHIL # 0.6 TH/MM3 (0-0.4); EOSINOPHIL % 6.1 % (0.0-4.0); HEMATOCRIT 31.2 % (35.0-46.0); HEMO FLAGS DIFF FINAL; LYMPH % 14.5 % (9.0-44.0); LYMPHOCYTE # 1.5 TH/MM3 (1.0-4.8); MEAN CELL VOLUME 89.4 FL (80.0-100.0); MEAN CORPUSCULAR HEMOGLOBIN 29.9 PG (27.0-34.0); MEAN CORPUSCULAR HGB CONC 33.4 % (32.0-36.0); MONO % 4.9 % (0.0-8.0); NEUT % 73.9 % (16.0-70.0); PLATELET COUNT 199 TH/MM3 (150-450); RED BLOOD COUNT 3.49 MIL/MM3 (4.00-5.30); RED CELL DISTRIBUTION WIDTH 16.6 % (11.6-17.2); WHITE BLOOD COUNT 10.2 TH/MM3 (4.0-11.0)
[2017-07-12 12:22] LABS: BICARBONATE 21.8 MEQ/L (21.0-32.0); POTASSIUM 4.3 MEQ/L (3.5-5.1)
[2017-07-12 13:20] LABS: BACTERIA, URINE OCC /hpf; BLOOD, URINE TRACE (NEG); COMMENT (UR) CULT NOT INDICATED; CULTURE IF INDICATED CULT NOT INDICATED; GLUCOSE,URINE NEG (NEG); KETONE, URINE NEG (NEG); MUCUS URINE FEW /lpf (OCC); NITRITE,URINE NEG (NEG); SQUAMOUS EPITHELIAL CELL URINE 17 /hpf (0-5); URINE COLOR YELLOW (YELLW/STRAW)
[2017-07-12] MEDS ORDERED: IOHEXOL 350 MG/ML 10 ML VIAL (for RAD DIAG) IVCONTRAST ONE (13:44)
--- NOTE | 2017-07-12 13:52 | RADRPT ---
EXAM DATE/TIME: 07/12/2017 13:30 [facility] COMPARISON: No previous studies available for comparison. INDICATIONS : Shortness of breath, blood clot in leg. IV CONTRAST: 69 cc Omnipaque 350 (iohexol) IV RADIATION DOSE: 23.15 CTDIvol (mGy) MEDICAL HISTORY : Lupus. Renal failure, chronic. SURGICAL HISTORY : Appendectomy. Cholecystectomy. ENCOUNTER: Initial ACUITY: 1 day PAIN SCALE: 7/10 LOCATION: chest TECHNIQUE: Volumetric scanning of the chest was performed using a pulmonary embolism protocol MIP images were re constructed. Using automated exposure control and adjustment of the mA and/or kV according to patien t size, radiation dose was kept as low as reasonably achievable to obtain optimal diagnostic quality images. DICOM format image data is available electronically for review and comparison. Follow-up recommendations for detected pulmonary nodules are based at a minimum on nodule size and pa tient risk factors according to Fleischner Society Guidelines. FINDINGS: PULMONARY ARTERIES: Multiple filling defects are seen in the right lower lobe, right middle lobe and left lower lobe pulm onary arteries, largest in the right lower lobe pulmonary artery. Pulmonary arteries are normal in ca liber. LUNGS: There is patchy densities in the left lower lobe. No concerning pulmonary nodule is visualized. PLEURAE: There is no pleural thickening or pleural effusion. MEDIASTINUM: There is good visualization of the great vessels of the middle mediastinum. No evidence of mediastin al or hilar adenopathy/mass. MUSCULOSKELETAL: Within normal limits for patient age. MISCELLANEOUS: The visualized upper abdominal organs demonstrate fatty liver. CONCLUSION: 1. Multifocal bilateral pulmonary emboli. 2. Patchy infiltrates left lower lobe. 3. Hepatic steatosis. Chintan Schultz MD on July 12, 2017 at 13:46 Board Certified Radiologist. This report was verified electronically.
[2017-07-12] MEDS ORDERED: HEPARIN SODIUM - IV 10,000 UNITS/10 ML VIAL IV ONE (14:45)
--- NOTE | 2017-07-12 15:13 | HHI.HP ---
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 Patient was started on oral contraceptives oral contractive 4 months ago. Patient symptoms initially started about one month ago. Patient presented to the ER 06/10/17 with c/o left sided pain dx with gastritis discharged home with Protonix. Patient's symptoms did not improve so she 1presented again to the ER 08/12 dx with PNA treated with Levaquin. Patient has been following weekly with PCP who noticed that patient was limping today. Her PCP ordered outpatient US. US from [facility] showed occlusive DVT popliteal vein extending into the gastrocnemius veins in the calf medially. Patient was then send to the ER by PCP. Patient did also have a trip to Trip to [place], [place] the end of May which was a [address] Patient denies fevers, chills, N/V/D/C. Patient also denies history of DVT or PE in the past. CTA reviewed and reveals: Multifocal bilateral pulmonary emboli. Patchy infiltrates left lower lobe. Review of Systems Constitutional: DENIES: Fatigue, Fever, Chills Eyes: DENIES: Blurred vision, Diplopia, Vision loss Respiratory: DENIES: Cough, Sputum production, Shortness of breath Cardiovascular: COMPLAINS OF: Lower Extremity Edema, DENIES: Chest pain, Palpitations, Dyspnea on Exertion Gastrointestinal: DENIES: Abdominal pain, Constipation, Diarrhea Neurologic: DENIES: Abnormal gait, Headache, Localized weakness, Speech Problems Psychiatric: DENIES: Anxiety, Confusion, Depression Past Family Social History Past Medical History ITP, antiphospholipid antibody, asthma, CKD stage 2, migraine, fibromyalgia, GERD, Michael thyroiditis, HTN, Lupus and PCOS Past Surgical History appendectomy, cholecystectomy Reported Medications [place] (Hydrocodone-Acetaminophen) 5 Mg-325 Mg Tab 1 Tab PO Q4H PRN Levofloxacin 500 Mg Tablet 500 Mg PO DAILY 10 Days Ibuprofen 800 Mg Tab 800 Mg PO Q6HR PRN Protonix (Pantoprazole Sodium) 40 Mg Tab 40 Mg PO DAILY Jnshimsfbz-Vkikvstnbnrrt-Zziykojd 50-325-40 Mg Tab 1 Tab PO Q4H PRN Do not exceed 6 tablets/day. Ventolin Hfa 18 GM Inh (Albuterol Sulfate) 90 Mcg/Act Aer 2 Puff INH Q6H PRN [ control] 1 Tab DAILY ortho-tricyclen Wellbutrin Xl 24 HR (Bupropion HCl) 300 Mg Tab 300 Mg PO DAILY Benazepril (Benazepril HCl) 20 Mg Tab 20 Mg PO DAILY Amlodipine (Amlodipine Besylate) 5 Mg Tab 5 Mg PO DAILY Metformin (Metformin HCl) 500 Mg Tab 500 Mg PO BIDPC Allergies: Coded Allergies: Rho(D) immune globulin (Verified Allergy, Severe, SEIZURES, 06/12/17) amoxicillin (Verified Allergy, Severe, DENIES, 06/12/17) clavulanic acid (Verified Allergy, Severe, RASH, 06/12/17) egg (Verified Allergy, Severe, HIVES/SWELLING, 06/12/17) ethinyl estradiol (Verified Allergy, Severe, Nausea/Vomiting, 06/12/17) levonorgestrel (Verified Allergy, Severe, Nausea/Vomiting, 06/12/17) Active Ordered Medications Current Medications Medications (Trade) Dose Ordered Sig/Roxi Route Start Time Stop Time Status Last Admin Heparin Sodium/ Dextrose 250 ml @ 16.772 mls/ hr TITRATE PRN IV 07/12/17 14:45 UNV Family History noncontributory Social History Lives with parents rare ETOH use denies tobacco use or illicit drug use Physical Exam Vital Signs Vital Signs Date Time Temp Pulse Resp B/P (MAP) Pulse Ox O2 Delivery O2 Flow Rate FiO2 07/12/17 11:39 104 18 07/12/17 11:26 97.9 110 18 163/90 (114) 95 Physical Exam GENERAL: This is a morbidly obese female, well-developed patient, in no apparent distress. SKIN: No rashes, ecchymoses or lesions. Cool and dry. HEAD: Atraumatic. Normocephalic. No temporal or scalp tenderness. EYES: Extraocular motions intact. No scleral icterus. No injection or drainage. CARDIOVASCULAR: Regular rate and rhythm RESPIRATORY: Clear to auscultation. Breath sounds equal bilaterally. GASTROINTESTINAL: Abdomen soft, non-tender, nondistended. No hepato-splenomegaly , or palpable masses. No guarding. MUSCULOSKELETAL: RLE knee down taunt painful to palpation unable to flex foot back. difficult to bend knee due to pain NEUROLOGICAL: Awake and alert. No focal deficits noted. Motor and sensory grossly within normal limits. Five out of 5 muscle strength in all muscle groups. Normal speech. Laboratory Laboratory Tests Test 07/12/17 11:50 07/12/17 12:25 White Blood Count 10.2 Red Blood Count 3.49 Hemoglobin 10.4 Hematocrit 31.2 Mean Corpuscular Volume 89.4 Mean Corpuscular Hemoglobin 29.9 Mean Corpuscular Hemoglobin Concent 33.4 Red Cell Distribution Width 16.6 Platelet Count 199 Mean Platelet Volume 7.3 Neutrophils (%) (Auto) 73.9 Lymphocytes (%) (Auto) 14.5 Monocytes (%) (Auto) 4.9 Eosinophils (%) (Auto) 6.1 Basophils (%) (Auto) 0.6 Neutrophils # (Auto) 7.6 Lymphocytes # (Auto) 1.5 Monocytes # (Auto) 0.5 Eosinophils # (Auto) 0.6 Basophils # (Auto) 0.1 CBC Comment DIFF FINAL Differential Comment Blood Urea Nitrogen 21 Creatinine 1.59 Random Glucose 103 Calcium Level 8.7 Sodium Level 138 Potassium Level 4.3 Chloride Level 108 Carbon Dioxide Level 21.8 Anion Gap 8 Estimat Glomerular Filtration Rate 40 Urine Color YELLOW Urine Turbidity HAZY Urine pH 6.0 Urine Specific [place] 1.018 Urine Protein 100 Urine Glucose (UA) NEG Urine Ketones NEG Urine Occult Blood TRACE Urine Nitrite NEG Urine Bilirubin NEG Urine Urobilinogen LESS THAN 2.0 Urine Leukocyte Esterase SMALL Urine RBC 3 Urine WBC 2 Urine Squamous Epithelial Cells 17 Urine Bacteria OCC Urine Mucus FEW Microscopic Urinalysis Comment CULT NOT INDICATED Result Diagram: 07/12/17 1150 07/12/17 [address] Angiography 07/12/17 0000 Signed Impressions: Service Date/Time: Wednesday, July 12, 2017 13:30 - CONCLUSION: 1. Multifocal bilateral pulmonary emboli. 2. Patchy infiltrates left lower lobe. 3. Hepatic steatosis. MD Danie Hagen VTE Risk Assessment Caprini VTE Risk Assessment: Mod/High Risk (score >= 2) Caprini Risk Assessment Model Point Value = 1 Point Value = 2 Point Value = 3 Point Value = 5 Age 41-60 Minor surgery BMI > 25 kg/m2 Swollen legs Varicose veins or History of unexplained or recurrent spontaneous Oral contraceptives or hormone replacement Sepsis (< 1 month) Serious lung disease, including pneumonia (< 1 month) Abnormal pulmonary function Acute myocardial infarction Congestive heart failure (< 1 month) History of inflammatory bowel disease Medical patient at bed rest Age 61-74 Arthroscopic surgery Major open surgery (> 45 min) Laparoscopic surgery (> 45 min) Malignancy Confined to bed (> 72 hours) Immobilizing plaster cast Central venous access Age >= 75 History of VTE Family history of VTE Factor V Leiden Prothrombin [id number] Lupus anticoagulant Anticardiolipin antibodies Elevated serum homocysteine Heparin-induced thrombocytopenia Other congenital or acquired thrombophilia Stroke (< 1 month) Elective arthroplasty Hip, pelvis, or leg fracture Acute spinal cord injury (< 1 month) Prophylaxis Regimen Total Risk Factor Score Risk Level Prophylaxis Regimen 0-1 Low Early ambulation 2 Moderate Order ONE of the following: *Sequential Compression Device (SCD) *Heparin 5000 units SQ BID 3-4 Higher Order ONE of the following medications: *Heparin 5000 units SQ TID *Enoxaparin/Lovenox 40 mg SQ daily (WT < 150 kg, CrCl > 30 mL/min) *Enoxaparin/Lovenox 30 mg SQ daily (WT < 150 kg, CrCl > 10-29 mL/min) *Enoxaparin/Lovenox 30 mg SQ BID (WT < 150 kg, CrCl > 30 mL/min) AND/OR *Sequential Compression Device (SCD) 5 or more Highest Order ONE of the following medications: *Heparin 5000 units SQ TID (Preferred with Epidurals) *Enoxaparin/Lovenox 40 mg SQ daily (WT < 150 kg, CrCl > 30 mL/min) *Enoxaparin/Lovenox 30 mg SQ daily (WT < 150 kg, CrCl > 10-29 mL/min) *Enoxaparin/Lovenox 30 mg SQ BID (WT < 150 kg, CrCl > 30 mL/min) AND *Sequential Compression Device (SCD) Assessment and Plan Problem List: (1) Pulmonary emboli ICD Codes: I26.99 - Other pulmonary embolism without acute cor pulmonale Status: Acute Plan: This is a 26 year old female patient with a past medical history which includes: ITP dx at age 11, antiphospholipid antibody, asthma, migraine, fibromyalgia, GERD, Michael thyroiditis, HTN, Lupus with Lupus nephritis since 2010, 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 Patient was started on oral contraceptives oral contractive 4 months ago. Now with DVT per OP US and PE on CT scan. PE and DVT secondary to antiphospholipid antibody with oral contraceptive use ago vs sedentary lifestyle Outpatient US revealed occlusive DVT popliteal vein extending into the gastrocnemius veins in the calf medially. Patient was then send to the ER by PCP. CTA reviewed and reveals: Multifocal bilateral pulmonary emboli. Patchy infiltrates left lower lobe. Patient started on heparin drip in ER plan to convert to Coumadin Consult Hematology -> Dr. Watts discussed case with Dr. Viveros DVT (deep venous thrombosis) see above Chronic ITP (idiopathic thrombocytopenia) Patient [facility] in [place] until 5 years ago, but has stopped going and had also stopped treatment regiment. 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 need follow up after DC Antiphospholipid antibody syndrome see above Asthma Duonebs as needed not in acute exacerbation at this time HTN (hypertension) Continue patient's home amlodipine 5 mg PO daily monitor BP trend Lupus Patient has followed with [facility] in [place] until 5 years ago, but has stopped going and had also stopped treatment regiment. 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 need bond runner after DC PCOS (polycystic ovarian syndrome) Patient on metformin 1000 mg PO BID will hold metformin for 48 hours due to contrast from CT chest will reevaluate restarting Metformin in 48 hours based on renal function (2) DVT (deep venous thrombosis) ICD Codes: I82.409 - Acute embolism and thrombosis of unspecified deep veins of unspecified lower extremity Status: Acute Plan: see above (3) Antiphospholipid antibody positive ICD Codes: R76.0 - Raised antibody titer Status: Chronic (4) Asthma ICD Codes: J45.909 - Unspecified asthma, uncomplicated Status: Chronic (5) HTN (hypertension) ICD Codes: I10 - Essential (primary) hypertension Status: Chronic (6) Lupus ICD Codes: L93.0 - Discoid lupus erythematosus Status: Chronic (7) PCOS (polycystic ovarian syndrome) ICD Codes: E28.2 - Polycystic ovarian syndrome Assessment and Plan Patient examined. Assessment and plan formulated with Carmenza York PA-C. I agree with the above. SLE with hepatic and renal involvement. ckd 3. off immunosuppressive therapy since age 20. remote hx "ITP as child". recently started on BCP's. Has hx of antiphospholipid ab positivity. presents with right leg dvt and bilateral PE"S discussed with hematology. will establish care for management and f/u. will begin heparin bridge to coumadin. It is felt this dvt provoked and so hopefully she can stop rx after 6months. reviewed images with pt and family and spoke to Dr Viveros Problem Qualifiers (1) Pulmonary emboli: Qualified Codes: I26.99 - Other pulmonary embolism without acute cor pulmonale (2) DVT (deep venous thrombosis): Carmenza York Jul 12, 2017 15:13 Montrell Fernandez MD Jul 12, 2017 19:30
[2017-07-12 15:34] LABS: APTT (PATIENT) 44.6 SEC (24.3-30.1); PROTHROMBIN TIME - PATIENT 10.1 SEC (9.8-11.6)
[2017-07-12] MEDS ORDERED: ALBUTEROL SULFATE 90 MCG/ACT HFA 8 GM INHALER INH PRN (16:15)
[2017-07-12] MEDS ORDERED: MAGNESIUM HYDROXIDE SUSP 30 ML CUP PO PRN (16:15)
[2017-07-12] MEDS ORDERED: ACETAMINOPHEN 325 MG TAB PO PRN (16:15)
[2017-07-12] MEDS ORDERED: ONDANSETRON HCL 4 MG/2 ML VIAL IVP PRN (16:15)
[2017-07-12] MEDS ORDERED: SODIUM CHLORIDE 0.9% FLUSH 10 ML FLUSH IV FLUSH PRN (16:15)
[2017-07-12] MEDS ORDERED: NALOXONE HCL 0.4 MG/ML AMP IV PUSH PRN (16:15)
[2017-07-12] MEDS: ACETAMINOPHEN/HYDROcodone 325 MG/5 MG TAB PO PRN ×2 (17:15→21:25)
[2017-07-12 17:25] VITALS: BP 126/81; PULSE 112; RESP 18; O2SAT 98
[2017-07-12] MEDS: HEPARIN-D5W 25,000 U/250 ML 250 ML IV PRN (17:47)
[2017-07-12 18:26] VITALS: BP 130/79; PULSE 98; RESP 16; TEMP 97.5; O2SAT 98
[2017-07-12 20:00] VITALS: BP 130/77; PULSE 88; RESP 18; TEMP 97.9; O2SAT 98
[2017-07-12 20:09] VITALS: PULSE 89
[2017-07-12] MEDS: SODIUM CHLOR 0.45% 1000 ML INJ 1,000 ML IV SCH (20:23)
[2017-07-12] MEDS: SODIUM CHLORIDE 0.9% FLUSH 10 ML FLUSH IV FLUSH SCH (20:27)
[2017-07-12] MEDS: DOCUSATE SODIUM 50 MG/SENNA 8.6 MG TAB PO SCH (20:27)
--- NOTE | 2017-07-12 21:39 | MB ---
cc: THOR RICHARDSON MD [facility] hematology consultation DATE OF CONSULTATION 07/12/2017 DATE OF 1990 CHIEF COMPLAINTS 1. History of antiphospholipid antibody syndrome. 2. Acute PE. 3. Acute DVT. 4. Oral contraceptive use. 5. Lupus with lupus nephritis and with this involvement of the liver. HISTORY OF PRESENT ILLNESS Ms. Garcia is a very pleasant 26-year-old lady with a complicated past medical history including a diagnosis of antiphospholipid antibody syndrome, Michael's thyroiditis, hypertension, lupus with lupus nephritis, lupus with liver involvement, chronic kidney disease, polycystic ovarian syndrome and history of ITP diagnosed at age 11. She reports that approximately one month ago she developed left-sided chest pain. She visited the emergency room on June 10 and was found to have gastritis and discharged home with Protonix. Despite Protonix her symptoms did not improve and she again presented to the emergency room and was treated for a pneumonia with antibiotic therapy. Despite antibiotic therapy and frequent visits with her primary care doctor, she did not improve. She saw her primary care doctor who noted that she was limping. Outpatient ultrasound showed occlusive DVT in the popliteal vein extending into the gastrocnemius veins in the right calf medially. She was then sent to the emergency room. She reports of recent car trip to [place] in May. She denies any past DVT or PE. She was started on oral contraceptive pills approximately 4 months ago. IMAGING CTA with multifocal bilateral pulmonary emboli, patchy infiltrates in the left lower lobe and hepatic steatosis. LABORATORY DATA Laboratory studies with white blood cell count 10.2, hemoglobin of 10.4, platelet count of 199,000 with a normal differential. Sodium is 138, potassium 4.3, chloride 108, bicarb is 21.8, BUN is 21, creatinine 1.59. Estimated GFR 40. ROS Respiratory: SOB All other ROS negative PAST MEDICAL HISTORY 1. ITP. 2. Antiphospholipid antibody syndrome. 3. Asthma. 4. Chronic kidney disease. 5. Migraine. 6. Fibromyalgia. 7. Acid reflux. 8. Michael's thyroiditis. 9. Hypertension. 10. Lupus with involvement of the liver and kidneys. 11. Polycystic ovarian syndrome. PAST SURGICAL HISTORY 1. Appendectomy. 2. Cholecystectomy. ALLERGIES WINRHO AND EGG YOLK. FAMILY HISTORY No family history of rheumatologic disease or blood disorders or blood clot. SOCIAL HISTORY The patient lives with her parents. Denies tobacco, alcohol, illegal drug use. She works at [employer]. PHYSICAL EXAMINATION VITAL SIGNS: Temperature of 97.5, pulse of 98, respiratory rate is 16, blood pressure of 130/79 and pulse ox of 98. GENERAL: Overweight lady in no distress, resting comfortably in bed. NECK: Supple with no palpable lymphadenopathy. HEAD: Normocephalic, atraumatic. Oropharynx clear. CARDIOVASCULAR: Regular rate and rhythm. No murmurs. LUNGS: Clear to auscultation bilaterally. ABDOMEN: Soft, nontender, nondistended with bowel sounds present. EXTREMITIES: Right leg with swelling and erythema and edema. Also tenderness to palpation. MUSCULOSKELETAL: Good muscle tone. NEUROLOGIC: Grossly nonfocal. PSYCHIATRIC: Appropriate mood and affect. ASSESSMENT/PLAN 1. Acute DVT, PE likely provoked due to recent prolonged care ride, recent start on oral contraceptive pills. She reports otherwise she has been in her normal state of health. A long discussion with the patient and her family. Discussed that given a history of antiphospholipid antibody syndrome that warfarin at this time would be the best choice of anticoagulant therapy. There is limited data to support the use of DOACs in APLS at this time. Discussed duration of anticoagulant that she would need at the very minimum 3 months of anticoagulation. At that point in time will discuss the risks versus benefits of continuing anticoagulation. She is currently on heparin and will plan to convert to warfarin therapy. Will plan for heparin gtt for 24 hours then transition to warfarin with lovenox bridge. 2. Anemia likely chronic due to known rheumatologic disease and complicated past medical history. We will check iron studies. 3. History of lupus with complications. She was previously followed by a logistics administrator at [facility], however, currently she is under the care of her primary care physician. She is not currently followed by a logistics administrator. Will need to obtain records from PCP and [facility]. 4. Elevated AST, ALT. Fatty liver found on scan and recent diagnosis involving the liver by lupus. 5. 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 MD DANIEL Pettit/JAH /6:32 PM /8:44 PM ALESSANDRO
[2017-07-12 22:15] LABS: APTT (PATIENT) 129.1 SEC (24.3-30.1)
[2017-07-13] VITALS (10 sets, daily range): BP systolic 115–131; BP diastolic 52–88; PULSE 75–99; RESP 16–20; TEMP 97.6–98.7; O2SAT 94–98
[2017-07-13 00:54] LABS: APTT (PATIENT) 35.6 SEC (24.3-30.1)
[2017-07-13 05:08] LABS: AUTOMATED NEUTROPHIL # 4.5 TH/MM3 (1.8-7.7); BASOPHIL % 0.5 % (0.0-2.0); EOSINOPHIL # 0.6 TH/MM3 (0-0.4); EOSINOPHIL % 7.9 % (0.0-4.0); HEMATOCRIT 25.7 % (35.0-46.0); HEMO FLAGS DIFF FINAL; LYMPH % 29.2 % (9.0-44.0); LYMPHOCYTE # 2.3 TH/MM3 (1.0-4.8); MEAN CELL VOLUME 88.1 FL (80.0-100.0); MEAN CORPUSCULAR HGB CONC 34.1 % (32.0-36.0); MONO % 6.5 % (0.0-8.0); NEUT % 55.9 % (16.0-70.0); PLATELET COUNT 158 TH/MM3 (150-450); RED BLOOD COUNT 2.92 MIL/MM3 (4.00-5.30); RED CELL DISTRIBUTION WIDTH 16.2 % (11.6-17.2)
[2017-07-13 05:19] LABS: POTASSIUM 4.5 MEQ/L (3.5-5.1)
[2017-07-13] MEDS: ACETAMINOPHEN/HYDROcodone 325 MG/5 MG TAB PO PRN ×4 (07:17→21:51)
--- NOTE | 2017-07-13 08:30 | HHI.PR ---
Subjective Remarks still with some pain in rle especially with ambulation. Objective Vitals nad heart reg lung cta abd s/nt ext tender right calf area Vital Signs Date Time Temp Pulse Resp B/P (MAP) Pulse Ox O2 Delivery O2 Flow Rate FiO2 07/13/17 04:05 75 07/13/17 04:00 97.6 78 16 115/85 (95) 96 07/13/17 00:18 85 07/13/17 00:00 98.2 80 16 120/78 (92) 97 07/12/17 20:09 89 07/12/17 20:00 97.9 88 18 130/77 (94) 98 07/12/17 19:30 Room Air 07/12/17 18:26 97.5 98 16 130/79 (96) 98 07/12/17 17:47 93 98 07/12/17 17:25 112 18 126/81 (96) 98 07/12/17 11:39 104 18 07/12/17 11:26 97.9 110 18 163/90 (114) 95 Result Diagram: 07/13/17 0412 07/13/[address] Angiography 07/12/17 0000 Signed Impressions: Service Date/Time: Wednesday, July 12, 2017 13:30 - CONCLUSION: 1. Multifocal bilateral pulmonary emboli. 2. Patchy infiltrates left lower lobe. 3. Hepatic steatosis. 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 Patient was started on oral contraceptives oral contractive 4 months ago. Now with DVT per OP US and PE on CT scan. PE and DVT secondary to antiphospholipid antibody with oral contraceptive use ago vs sedentary lifestyle Outpatient US revealed occlusive DVT popliteal vein extending into the gastrocnemius veins in the calf medially. Patient was then send to the ER by PCP. CTA reviewed and reveals: Multifocal bilateral pulmonary emboli. Patchy infiltrates left lower lobe. Patient started on heparin drip will start coumadin. I think I will convert heparin to lovenox unless hematology opposed. planning for at least 3-6months of treatment monitor renal function. currently ckd 3. hold metformin for now after contrast. DVT (deep venous thrombosis) see above Chronic ITP (idiopathic thrombocytopenia) Patient has followed with [facility] in [place] until 5 years ago, but has stopped going and had also stopped treatment regiment. 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 need follow up after DC Antiphospholipid antibody syndrome see above Asthma Duonebs as needed not in acute exacerbation at this time HTN (hypertension) Continue patient's home amlodipine 5 mg PO daily monitor BP trend Lupus Patient has followed with [facility] in [place] until 5 years ago, but has stopped going and had also stopped treatment regiment. 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 need natural resource technician after DC PCOS (polycystic ovarian syndrome) Patient on metformin 1000 mg PO BID will hold metformin for 48 hours due to contrast from CT chest will reevaluate restarting Metformin in 48 hours based on renal function (2) DVT (deep venous thrombosis) ICD Codes: I82.409 - Acute embolism and thrombosis of unspecified deep veins of unspecified lower extremity Status: Acute Plan: see above (3) Antiphospholipid antibody positive ICD Codes: R76.0 - Raised antibody titer Status: Chronic (4) Asthma ICD Codes: J45.909 - Unspecified asthma, uncomplicated Status: Chronic (5) HTN (hypertension) ICD Codes: I10 - Essential (primary) hypertension Status: Chronic (6) Lupus ICD Codes: L93.0 - Discoid lupus erythematosus Status: Chronic (7) PCOS (polycystic ovarian syndrome) ICD Codes: E28.2 - Polycystic ovarian syndrome Problem Qualifiers (1) Pulmonary emboli: Qualified Codes: I26.99 - Other pulmonary embolism without acute cor pulmonale (2) DVT (deep venous thrombosis): Montrell Fernandez MD Jul 13, 2017 08:30
[2017-07-13] MEDS: DOCUSATE SODIUM 50 MG/SENNA 8.6 MG TAB PO SCH ×2 (08:47→21:00)
[2017-07-13] MEDS: LISINOPRIL 20 MG TAB PO SCH (08:47)
[2017-07-13] MEDS: amLODIPine BESYLATE 5 MG TAB PO SCH (08:47)
[2017-07-13] MEDS: SODIUM CHLORIDE 0.9% FLUSH 10 ML FLUSH IV FLUSH SCH ×2 (08:48→21:00)
--- NOTE | 2017-07-13 12:16 | PD.ONC.PN ---
Subjective Subjective Remarks Afebrile overnight. Patient resting in bed in nad. Had BM yesterday without bleeding. Still having some pain in right calf. Objective Data Date Time Temp Pulse Resp B/P (MAP) Pulse Ox O2 Delivery O2 Flow Rate FiO2 07/13/17 08:05 83 07/13/17 08:00 97.8 86 20 131/88 (102) 95 07/13/17 07:15 Room Air 07/13/17 04:05 75 07/13/17 04:00 97.6 78 16 115/85 (95) 96 07/13/17 00:18 85 07/13/17 00:00 98.2 80 16 120/78 (92) 97 07/12/17 20:09 89 07/12/17 20:00 97.9 88 18 130/77 (94) 98 07/12/17 19:30 Room Air 07/12/17 18:26 97.5 98 16 130/79 (96) 98 07/12/17 17:47 93 98 07/12/17 17:25 112 18 126/81 (96) 98 07/13/17 07/13/17 07/13/17 07:00 15:00 23:00 Intake Total 586 ml Balance 586 ml Result Diagram: 07/13/1741107/13/17 041 Laboratory Results Laboratory Tests Test 07/12/17 12:25 07/12/17 14:20 07/12/17 21:08 07/13/17 00:30 Urine Color YELLOW Urine Turbidity HAZY Urine pH 6.0 Urine Specific [place] 1.018 Urine Protein 100 mg/dL Urine Glucose (UA) NEG mg/dL Urine Ketones NEG mg/dL Urine Occult Blood TRACE Urine Nitrite NEG Urine Bilirubin NEG Urine Urobilinogen LESS THAN 2.0 MG/DL Urine Leukocyte Esterase SMALL Urine RBC 3 /hpf Urine WBC 2 /hpf Urine Squamous Epithelial Cells 17 /hpf Urine Bacteria OCC /hpf Urine Mucus FEW /lpf Microscopic Urinalysis Comment CULT NOT INDICATED Prothrombin Time 10.1 SEC Prothromb Time International Ratio 1.0 RATIO Activated Partial Thromboplast Time 44.6 SEC 129.1 SEC 35.6 SEC Test 07/13/17 04:12 White Blood Count 8.0 TH/MM3 Red Blood Count 2.92 MIL/MM3 Hemoglobin 8.8 GM/DL Hematocrit 25.7 % Mean Corpuscular Volume 88.1 FL Mean Corpuscular Hemoglobin 30.0 PG Mean Corpuscular Hemoglobin Concent 34.1 % Red Cell Distribution Width 16.2 % Platelet Count 158 TH/MM3 Mean Platelet Volume 7.3 FL Neutrophils (%) (Auto) 55.9 % Lymphocytes (%) (Auto) 29.2 % Monocytes (%) (Auto) 6.5 % Eosinophils (%) (Auto) 7.9 % Basophils (%) (Auto) 0.5 % Neutrophils # (Auto) 4.5 TH/MM3 Lymphocytes # (Auto) 2.3 TH/MM3 Monocytes # (Auto) 0.5 TH/MM3 Eosinophils # (Auto) 0.6 TH/MM3 Basophils # (Auto) 0.0 TH/MM3 CBC Comment DIFF FINAL Differential Comment Blood Urea Nitrogen 21 MG/DL Creatinine 1.47 MG/DL Random Glucose 80 MG/DL Calcium Level 8.0 MG/DL Sodium Level 139 MEQ/L Potassium Level 4.5 MEQ/L Chloride Level 108 MEQ/L Carbon Dioxide Level 24.0 MEQ/L Anion Gap 7 MEQ/L Estimat Glomerular Filtration Rate 44 ML/MIN Imaging Studies Last Impressions CT Angiography 07/12/17 0000 Signed Impressions: Service Date/Time: Wednesday, July 12, 2017 13:30 - CONCLUSION: 1. Multifocal bilateral pulmonary emboli. 2. Patchy infiltrates left lower lobe. 3. Hepatic steatosis. Chintan Schultz MD Administered Medications Medications (Trade) Dose Ordered Sig/Roxi Route PRN Reason Start Time Stop Time Status Last Admin Dose Admin Heparin Sodium/ Dextrose 250 ml @ 17 mls/hr TITRATE PRN IV Coagulation Management 07/12/17 14:45 07/12/17 17:47 Sodium Chloride (NS Flush) 2 ml BID IV FLUSH 07/12/17 21:00 07/13/17 08:48 Senna/Docusate Sodium (Cassie-Colace) 1 tab BID PO 07/12/17 21:00 07/13/17 08:47 Sodium Chloride 1,000 ml @ 42 mls/hr [id number] IV 07/12/17 16:30 07/12/17 20:23 Amlodipine Besylate (Norvasc) 5 mg DAILY PO 07/13/17 09:00 07/13/17 08:47 Lisinopril (Prinivil) 20 mg DAILY PO 07/13/17 09:00 07/13/17 08:47 Acetaminophen/ Hydrocodone Bitart ([place] 5-325 Mg) 1 tab Q4H PRN PO PAIN 07/12/17 16:15 07/13/17 07:17 Objective Remarks GENERAL: Pleasant young woman lying in bed in nad. SKIN: Warm and dry. HEAD: Normocephalic. EYES: No scleral icterus. No injection or drainage. NECK: Supple, trachea midline. CARDIOVASCULAR: Regular rate and rhythm RESPIRATORY: Breath sounds equal bilaterally. No accessory muscle use. GASTROINTESTINAL: Abdomen soft, non-tender, nondistended. EXTREMITIES: No cyanosis. edema, RLE NEUROLOGICAL: No obvious focal deficit. Awake, alert, and oriented x3. Assessment/Plan Assessment 26y/o female with PE/DVT history of antiphospholipid antibody syndrome. + Oral contraceptive use. 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 h/p Chronic kidney disease -->due to lupus nephritis. Plan 1. Acute DVT, PE-->currently on heparin, started yesterday afternoon. ok to start Lovenox/coumadin tomorrow -- with history of antiphospholipid antibody syndrome warfarin at this time would be the best choice of anticoagulant therapy. -- duration of anticoagulant that she would need at the very minimum 3 months of anticoagulation. --fs faxed to new patient referrals for follow up. 2. Normocytic anemia: likely anemia of chronic disease, check iron studies today. will also check stool for occult blood. Attending Statement The exam, history, and the medical decision-making described in the above note were completed with the assistance of the mid-level provider. I reviewed and agree with the findings presented. I attest that I had a [id number] encounter with the patient on the same day, and personally performed and documented my assessment and findings in the medical record.26 yoF with SLE involving liver and kidneys, PCOS, anemia, history of ITP, APLS. DVT/PE heparin. Tomorrow will discuss lovenox to warfarin and hospital discharge. Improvement in symptoms. Martita Hess Jul 13, 2017 12:16 Usha Viveros MD Jul 13, 2017 23:58
[2017-07-13 14:09] LABS: APTT (PATIENT) 53.5 SEC (24.3-30.1)
[2017-07-13 14:54] LABS: FERRITIN 733 NG/ML (8-252); FREE T4 1.14 NG/DL (0.76-1.46); TRANSFERRIN IRON PROFILE 245 MG/DL (200-360)
[2017-07-13] MEDS: HEPARIN-D5W 25,000 U/250 ML 250 ML IV PRN (15:58)
[2017-07-13] MEDS ORDERED: WARFARIN SOD 5 MG TAB PO SCH (16:00)
[2017-07-13 19:45] LABS: APTT (PATIENT) 56.9 SEC (24.3-30.1)
[2017-07-13] MEDS: SODIUM CHLOR 0.45% 1000 ML INJ 1,000 ML IV SCH (21:01)
[2017-07-14] VITALS (13 sets, daily range): BP systolic 122–140; BP diastolic 70–87; PULSE 72–106; RESP 16–18; TEMP 98.3–99.3; O2SAT 95–97
[2017-07-14] MEDS: ACETAMINOPHEN/HYDROcodone 325 MG/5 MG TAB PO PRN ×3 (06:19→21:21)
[2017-07-14 08:58] LABS: APTT (PATIENT) 61.3 SEC (24.3-30.1); PROTHROMBIN TIME - PATIENT 10.3 SEC (9.8-11.6)
[2017-07-14] MEDS: DOCUSATE SODIUM 50 MG/SENNA 8.6 MG TAB PO SCH ×2 (09:00→21:21)
[2017-07-14] MEDS: SODIUM CHLORIDE 0.9% FLUSH 10 ML FLUSH IV FLUSH SCH ×2 (09:00→21:22)
[2017-07-14] MEDS: amLODIPine BESYLATE 5 MG TAB PO SCH (09:00)
[2017-07-14] MEDS: LISINOPRIL 20 MG TAB PO SCH (09:00)
[2017-07-14 09:16] LABS: BICARBONATE 22.8 MEQ/L (21.0-32.0); POTASSIUM 4.5 MEQ/L (3.5-5.1)
--- NOTE | 2017-07-14 10:09 | HHI.PR ---
Subjective Remarks right leg feels a little better. cough Objective Vitals heart reg lung cta abd s/nt ext right calf mild tenderness. Vital Signs Date Time Temp Pulse Resp B/P (MAP) Pulse Ox O2 Delivery O2 Flow Rate FiO2 07/14/17 08:08 98.3 87 17 129/80 (96) 96 07/14/17 04:00 98.5 83 18 140/77 (98) 95 07/14/17 03:56 72 07/14/17 03:56 Room Air 07/14/17 00:17 75 07/14/17 00:00 98.3 76 16 122/87 (99) 95 07/14/17 00:00 Room Air 07/13/17 20:00 Room Air 07/13/17 20:00 98.7 79 18 122/75 (91) 98 07/13/17 19:59 92 07/13/17 16:00 90 07/13/17 16:00 97.9 86 20 128/60 (82) 97 07/13/17 12:00 97.8 99 20 131/52 (78) 94 07/13/17 12:00 97 07/14/17 07/14/17 07/15/17 15:00 23:00 07:00 Intake Total 26 ml Balance 26 ml IV Total 26 ml Result Diagram: 07/13/17 0412 07/14/[address] Angiography 07/12/17 0000 Signed Impressions: Service Date/Time: Wednesday, July 12, 2017 13:30 - CONCLUSION: 1. Multifocal bilateral pulmonary emboli. 2. Patchy infiltrates left lower lobe. 3. Hepatic steatosis. 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 Patient was started on oral contraceptives oral contractive 4 months ago. Now with DVT per OP US and PE on CT scan. PE and DVT secondary to antiphospholipid antibody with oral contraceptive use ago vs sedentary lifestyle Outpatient US revealed occlusive DVT popliteal vein extending into the gastrocnemius veins in the calf medially. Patient was then send to the ER by PCP. CTA reviewed and reveals: Multifocal bilateral pulmonary emboli. Patchy infiltrates left lower lobe. Patient started on heparin drip stop heparin and start lovenox bridge to coumadin hematology will follow inr levels after d/c and manage. planning for at least 3-6months of treatment monitor renal function. currently ckd 3. hold metformin for now after contrast. DVT (deep venous thrombosis) see above Chronic ITP (idiopathic thrombocytopenia) Patient has followed with [facility] in [place] until 5 years ago, but has stopped going and had also stopped treatment regiment. 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 need follow up after DC Antiphospholipid antibody syndrome see above Asthma Duonebs as needed not in acute exacerbation at this time HTN (hypertension) Continue patient's home amlodipine 5 mg PO daily monitor BP trend Lupus Patient has followed with [facility] in [place] until 5 years ago, but has stopped going and had also stopped treatment regiment. 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 need dip guider stoves after DC PCOS (polycystic ovarian syndrome) Patient on metformin 1000 mg PO BID will hold metformin for 48 hours due to contrast from CT chest will reevaluate restarting Metformin in 48 hours based on renal function (2) DVT (deep venous thrombosis) ICD Codes: I82.409 - Acute embolism and thrombosis of unspecified deep veins of unspecified lower extremity Status: Acute Plan: see above (3) Antiphospholipid antibody positive ICD Codes: R76.0 - Raised antibody titer Status: Chronic (4) Asthma ICD Codes: J45.909 - Unspecified asthma, uncomplicated Status: Chronic (5) HTN (hypertension) ICD Codes: I10 - Essential (primary) hypertension Status: Chronic (6) Lupus ICD Codes: L93.0 - Discoid lupus erythematosus Status: Chronic (7) PCOS (polycystic ovarian syndrome) ICD Codes: E28.2 - Polycystic ovarian syndrome Problem Qualifiers (1) Pulmonary emboli: Qualified Codes: I26.99 - Other pulmonary embolism without acute cor pulmonale (2) DVT (deep venous thrombosis): Montrell Fernandez MD Jul 14, 2017 10:09
--- NOTE | 2017-07-14 11:43 | PD.ONC.PN ---
Subjective Subjective Remarks Afebrile overnight. Patient resting in bed in nad. No complaints. Wants to go home. Objective Data Date Time Temp Pulse Resp B/P (MAP) Pulse Ox O2 Delivery O2 Flow Rate FiO2 07/14/17 08:08 98.3 87 17 129/80 (96) 96 07/14/17 07:45 72 07/14/17 04:00 98.5 83 18 140/77 (98) 95 07/14/17 03:56 72 07/14/17 03:56 Room Air 07/14/17 00:17 75 07/14/17 00:00 98.3 76 16 122/87 (99) 95 07/14/17 00:00 Room Air 07/13/17 20:00 Room Air 07/13/17 20:00 98.7 79 18 122/75 (91) 98 07/13/17 19:59 92 07/13/17 16:00 90 07/13/17 16:00 97.9 86 20 128/60 (82) 97 07/13/17 12:00 97.8 99 20 131/52 (78) 94 07/13/17 12:00 97 07/14/17 07/14/17 07/14/17 07:00 15:00 23:00 Intake Total 1069 ml 26 ml Balance 1069 ml 26 ml Result Diagram: 07/13/17 0412 07/14/17 0806 Laboratory Results Laboratory Tests Test 07/13/17 13:20 07/13/17 18:52 07/14/17 08:01 07/14/17 08:06 Activated Partial Thromboplast Time 53.5 SEC 56.9 SEC 61.3 SEC Iron Level 36 MCG/DL Total Iron Binding Capacity 343 MCG/DL Percent Iron Saturation 10.5 % Ferritin 733 NG/ML Vitamin B12 Level 322 PG/ML Folate 8.2 NG/ML Free Thyroxine 1.14 NG/DL Thyroid Stimulating Hormone 3rd Gen 4.620 uIU/ML Prothrombin Time 10.3 SEC Prothromb Time International Ratio 1.0 RATIO Blood Urea Nitrogen 18 MG/DL Creatinine 1.35 MG/DL Random Glucose 88 MG/DL Calcium Level 8.8 MG/DL Sodium Level 138 MEQ/L Potassium Level 4.5 MEQ/L Chloride Level 108 MEQ/L Carbon Dioxide Level 22.8 MEQ/L Anion Gap 7 MEQ/L Estimat Glomerular Filtration Rate 48 ML/MIN Culture Results Microbiology Date/Time Source Procedure Growth Status 07/13/17 21:55 Stool Stool Stool Occult Blood (EDGAR) - Final HEMOCCULT NEGATIVE Complete Administered Medications Medications (Trade) Dose Ordered Sig/Roxi Route PRN Reason Start Time Stop Time Status Last Admin Dose Admin Sodium Chloride (NS Flush) 2 ml BID IV FLUSH 07/12/17 21:00 07/13/17 21:00 Senna/Docusate Sodium (Cassie-Colace) 1 tab BID PO 07/12/17 21:00 07/14/17 09:00 Amlodipine Besylate (Norvasc) 5 mg DAILY PO 07/13/17 09:00 07/14/17 09:00 Lisinopril (Prinivil) 20 mg DAILY PO 07/13/17 09:00 07/14/17 09:00 Acetaminophen/ Hydrocodone Bitart ([place] 5-325 Mg) 1 tab Q4H PRN PO PAIN 07/12/17 16:15 07/14/17 06:19 Objective Remarks GENERAL: Young woman, lying in bed. nad SKIN: Warm and dry. HEAD: Normocephalic. EYES: No injection or drainage. NECK: Supple, trachea midline. CARDIOVASCULAR: Regular rate and rhythm RESPIRATORY: Breath sounds equal bilaterally. No accessory muscle use. GASTROINTESTINAL: Abdomen soft, non-tender, nondistended. EXTREMITIES: No cyanosis. RLE with mild edema. MUSCULOSKELETAL: Adequate muscle tone. NEUROLOGICAL: No obvious focal deficit. Awake, alert, and oriented x3. Assessment/Plan Assessment 26y/o female with PE/DVT history of antiphospholipid antibody syndrome. + Oral contraceptive use. 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 h/p Chronic kidney disease -->due to lupus nephritis. Plan 1. Acute DVT, PE--> start Lovenox/coumadin today. follow up in clinic next week. -- with history of antiphospholipid antibody syndrome warfarin at this time would be the best choice of anticoagulant therapy. -- duration of anticoagulant that she would need at the very minimum 3 months of anticoagulation. --fs faxed to new patient referrals for follow up in one week. 2. Normocytic anemia: likely anemia of chronic disease, iron studies show elevated ferritin, but depressed % saturation and total Fe, more consistent with anemia of chronic disease or a mixed picture. Hemoccult negative. await repeat CBC today Attending Statement The exam, history, and the medical decision-making described in the above note were completed with the assistance of the mid-level provider. I reviewed and agree with the findings presented. I attest that I had a [id number] encounter with the patient on the same day, and personally performed and documented my assessment and findings in the medical record. 26 yoF with history of SLE, APLS, PCOS on OCP admitted with DVT/PE. Stopped OCP. On lovenox bridge to warfarin. (CrCl greater thank 30, ok to proceed with lovenox therapy). Will place patient on warfarin given antiphospholipid antibody syndrome with clot. Limited evidence at this point in time for DOACs in this disease. She will need to follow up closely in clinic for management of INR. She will need 3 months at minimum of anticoagulation therapy. She will need to establish with supervisor laboratory animal facility and supervisor underwriting clerks upon hospital discharge. Lovenox and warfarin started today. Will plan for discharge tomorrow AM. Martita Hess Jul 14, 2017 11:43 Usha Viveros MD Jul 14, 2017 16:54
[2017-07-14] MEDS: ENOXAPARIN SODIUM 100 MG/ML SYRINGE SQ SCH (12:57)
[2017-07-14 14:03] LABS: AUTOMATED NEUTROPHIL # 6.1 TH/MM3 (1.8-7.7); BASOPHIL % 0.4 % (0.0-2.0); EOSINOPHIL # 0.3 TH/MM3 (0-0.4); EOSINOPHIL % 4.2 % (0.0-4.0); HEMATOCRIT 30.8 % (35.0-46.0); HEMO FLAGS DIFF FINAL; LYMPH % 13.7 % (9.0-44.0); LYMPHOCYTE # 1.1 TH/MM3 (1.0-4.8); MEAN CELL VOLUME 87.5 FL (80.0-100.0); MEAN CORPUSCULAR HEMOGLOBIN 28.5 PG (27.0-34.0); MEAN CORPUSCULAR HGB CONC 32.6 % (32.0-36.0); MONO % 5.2 % (0.0-8.0); NEUT % 76.5 % (16.0-70.0); PLATELET COUNT 201 TH/MM3 (150-450); RED BLOOD COUNT 3.52 MIL/MM3 (4.00-5.30); RED CELL DISTRIBUTION WIDTH 16.3 % (11.6-17.2)
[2017-07-14] MEDS: WARFARIN SOD 5 MG TAB PO SCH (16:17)
[2017-07-15] VITALS (7 sets, daily range): BP systolic 123–149; BP diastolic 67–81; PULSE 85–109; RESP 16–21; TEMP 97.7–98.8; O2SAT 93–97
[2017-07-15] MEDS: ENOXAPARIN SODIUM 100 MG/ML SYRINGE SQ SCH ×2 (00:07→11:26)
[2017-07-15] MEDS: ACETAMINOPHEN/HYDROcodone 325 MG/5 MG TAB PO PRN ×2 (03:07→06:44)
[2017-07-15 07:02] LABS: INTERNATIONAL NORMALIZED RATIO 1.1 RATIO; PROTHROMBIN TIME - PATIENT 10.9 SEC (9.8-11.6)
[2017-07-15 07:12] LABS: HEMATOCRIT 28.8 % (35.0-46.0); MEAN CELL VOLUME 88.8 FL (80.0-100.0); MEAN CORPUSCULAR HEMOGLOBIN 29.4 PG (27.0-34.0); MEAN CORPUSCULAR HGB CONC 33.1 % (32.0-36.0); PLATELET COUNT 173 TH/MM3 (150-450); RED BLOOD COUNT 3.24 MIL/MM3 (4.00-5.30); RED CELL DISTRIBUTION WIDTH 15.8 % (11.6-17.2); REVIEW FLAG FINAL; WHITE BLOOD COUNT 11.7 TH/MM3 (4.0-11.0)
[2017-07-15] MEDS: DOCUSATE SODIUM 50 MG/SENNA 8.6 MG TAB PO SCH ×2 (09:36→22:00)
[2017-07-15] MEDS: LISINOPRIL 20 MG TAB PO SCH (09:36)
[2017-07-15] MEDS: amLODIPine BESYLATE 5 MG TAB PO SCH (09:36)
--- NOTE | 2017-07-15 10:29 | HHI.PR ---
Subjective Remarks left chest pain returned overnight. miserable pleuritic and also hurts with movement. Objective Vitals heart reg lung no crackles/wheezing abd s/nt ext no pitting. Vital Signs Date Time Temp Pulse Resp B/P (MAP) Pulse Ox O2 Delivery O2 Flow Rate FiO2 07/15/17 08:09 98.8 94 17 129/81 (97) 93 07/15/17 05:02 97.7 87 16 129/81 (97) 96 07/15/17 04:43 85 07/15/17 04:00 Room Air 07/15/17 00:55 98.6 93 18 123/67 (85) 97 07/15/17 00:00 Room Air 07/14/17 23:45 85 07/14/17 21:19 Room Air 07/14/17 20:00 98.8 103 16 136/76 (96) 96 07/14/17 19:46 94 07/14/17 16:09 99.3 101 18 132/70 (90) 97 07/14/17 16:00 106 07/14/17 12:09 98.8 80 17 123/80 (94) 97 07/14/17 12:00 90 Result Diagram: 07/15/17 0540 07/14/17 [address] Angiography 07/12/17 0000 Signed Impressions: Service Date/Time: Wednesday, July 12, 2017 13:30 - CONCLUSION: 1. Multifocal bilateral pulmonary emboli. 2. Patchy infiltrates left lower lobe. 3. Hepatic steatosis. 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 Patient was started on oral contraceptives oral contractive 4 months ago. Now with DVT per OP US and PE on CT scan. PE and DVT secondary to antiphospholipid antibody with oral contraceptive use ago vs sedentary lifestyle Outpatient US revealed occlusive DVT popliteal vein extending into the gastrocnemius veins in the calf medially. Patient was then send to the ER by PCP. CTA reviewed and reveals: Multifocal bilateral pulmonary emboli. Patchy infiltrates left lower lobe. Pt heparin gtt converted to lovenox 07/14. coumadin started 07/15 more left chest pain as before..... planning for at least 3-6months of treatment monitor renal function. currently ckd 3. hold metformin for now after contrast. increase lovenox dose. confirm weight cont coumadin 24hrs solumedrol to help for possible pleurisy pain dose morphine now and increase norco if no relief may need to convert back to heparin. hold d/c DVT (deep venous thrombosis) see above Chronic ITP (idiopathic thrombocytopenia) Patient has followed with [facility] in [place] until 5 years ago, but has stopped going and had also stopped treatment regiment. 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 need follow up after DC Antiphospholipid antibody syndrome see above Asthma Duonebs as needed not in acute exacerbation at this time HTN (hypertension) Continue patient's home amlodipine 5 mg PO daily monitor BP trend Lupus Patient has followed with [facility] in [place] until 5 years ago, but has stopped going and had also stopped treatment regiment. 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 need theatre arts professor after DC PCOS (polycystic ovarian syndrome) Patient on metformin 1000 mg PO BID will hold metformin for 48 hours due to contrast from CT chest will reevaluate restarting Metformin in 48 hours based on renal function (2) DVT (deep venous thrombosis) ICD Codes: I82.409 - Acute embolism and thrombosis of unspecified deep veins of unspecified lower extremity Status: Acute Plan: see above (3) Antiphospholipid antibody positive ICD Codes: R76.0 - Raised antibody titer Status: Chronic (4) Asthma ICD Codes: J45.909 - Unspecified asthma, uncomplicated Status: Chronic (5) HTN (hypertension) ICD Codes: I10 - Essential (primary) hypertension Status: Chronic (6) Lupus ICD Codes: L93.0 - Discoid lupus erythematosus Status: Chronic (7) PCOS (polycystic ovarian syndrome) ICD Codes: E28.2 - Polycystic ovarian syndrome Problem Qualifiers (1) Pulmonary emboli: Qualified Codes: I26.99 - Other pulmonary embolism without acute cor pulmonale (2) DVT (deep venous thrombosis): Montrell Fernandez MD Jul 15, 2017 10:29
[2017-07-15] MEDS ORDERED: methylPREDNISolone SOD SUCC 125 MG/2 ML VIAL IV PUSH ONE (11:15)
[2017-07-15] MEDS ORDERED: MORPHINE SULFATE 4 MG/ML INJ IV PUSH ONE (11:15)
[2017-07-15] MEDS: SODIUM CHLORIDE 0.9% FLUSH 10 ML FLUSH IV FLUSH SCH ×2 (11:26→22:00)
[2017-07-15] MEDS: ACETAMINOPHEN/HYDROcodone 325 MG/10 MG TAB PO PRN ×3 (12:50→22:08)
--- NOTE | 2017-07-15 14:20 | PD.ONC.PN ---
Subjective Subjective Remarks Afebrile overnight. Patient reporting pain returned to left side of chest yesterday. Hoping to have some improvement in the pain before she goes home. Objective Data Date Time Temp Pulse Resp B/P (MAP) Pulse Ox O2 Delivery O2 Flow Rate FiO2 07/15/17 14:11 16 07/15/17 12:15 98.0 109 17 125/72 (89) 96 07/15/17 08:09 98.8 94 17 129/81 (97) 93 07/15/17 05:02 97.7 87 16 129/81 (97) 96 07/15/17 04:43 85 07/15/17 04:00 Room Air 07/15/17 00:55 98.6 93 18 123/67 (85) 97 07/15/17 00:00 Room Air 07/14/17 23:45 85 07/14/17 21:19 Room Air 07/14/17 20:00 98.8 103 16 136/76 (96) 96 07/14/17 19:46 94 07/14/17 16:09 99.3 101 18 132/70 (90) 97 07/14/17 16:00 106 Result Diagram: 07/15/17 0540 07/14/17 0806 Laboratory Results Laboratory Tests Test 07/15/17 05:40 White Blood Count 11.7 TH/MM3 Red Blood Count 3.24 MIL/MM3 Hemoglobin 9.5 GM/DL Hematocrit 28.8 % Mean Corpuscular Volume 88.8 FL Mean Corpuscular Hemoglobin 29.4 PG Mean Corpuscular Hemoglobin Concent 33.1 % Red Cell Distribution Width 15.8 % Platelet Count 173 TH/MM3 Mean Platelet Volume 7.4 FL Prothrombin Time 10.9 SEC Prothromb Time International Ratio 1.1 RATIO Culture Results Microbiology Date/Time Source Procedure Growth Status 07/13/17 21:55 Stool Stool Stool Occult Blood (EDGAR) - Final HEMOCCULT NEGATIVE Complete Administered Medications Medications (Trade) Dose Ordered Sig/Roxi Route PRN Reason Start Time Stop Time Status Last Admin Dose Admin Sodium Chloride (NS Flush) 2 ml BID IV FLUSH 07/12/17 21:00 07/15/17 11:26 Senna/Docusate Sodium (Cassie-Colace) 1 tab BID PO 07/12/17 21:00 07/15/17 09:36 Amlodipine Besylate (Norvasc) 5 mg DAILY PO 07/13/17 09:00 07/15/17 09:36 Lisinopril (Prinivil) 20 mg DAILY PO 07/13/17 09:00 07/15/17 09:36 Warfarin Sodium (Coumadin) 5 mg DAILY@1600 PO 07/14/17 16:00 07/14/17 16:17 Enoxaparin Sodium (Lovenox Inj) 100 mg Q12H SQ 07/15/17 12:00 07/15/17 11:26 Acetaminophen/ Hydrocodone Bitart ([place] 10-325 Mg) 1 tab Q4H PRN PO pain 3-10 07/15/17 10:30 07/15/17 12:50 Objective Remarks GENERAL: Young woman, sitting up in bed in [facility]. SKIN: Warm and dry. HEAD: Normocephalic. EYES: No injection or drainage. NECK: Supple, trachea midline. CARDIOVASCULAR: Regular rate and rhythm RESPIRATORY: Breath sounds equal bilaterally. No accessory muscle use. GASTROINTESTINAL: Abdomen soft, non-tender, nondistended. EXTREMITIES: No cyanosis. MUSCULOSKELETAL: Adequate muscle tone. NEUROLOGICAL: awake and alert, normal speech. Assessment/Plan Assessment 26y/o female with PE/DVT history of antiphospholipid antibody syndrome. + Oral contraceptive use. 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 h/p Chronic kidney disease -->due to lupus nephritis. Plan 1. Acute DVT, PE--> continue Lovenox/coumadin. agree with increased dosing of Lovenox. will monitor INR once discharged -- with history of antiphospholipid antibody syndrome warfarin at this time would be the best choice of anticoagulant therapy. -- duration of anticoagulant that she would need at the very minimum 3 months of anticoagulation. --fs faxed to new patient referrals for follow up with Dr. Viveros next week. 2. Normocytic anemia: likely anemia of chronic disease, monitor CBC Attending Statement The exam, history, and the medical decision-making described in the above note were completed with the assistance of the mid-level provider. I reviewed and agree with the findings presented. I attest that I had a [id number] encounter with the patient on the same day, and personally performed and documented my assessment and findings in the medical record.26 yoF with complicated past medical history including SLE, lupus nephritis, APLS, PCOS admitted with DVT/PE after starting on OCP. OCP stopped. On heparin with conversion to lovenox. Warfarin started. Close follow up in clinic. Martita Hess Jul 15, 2017 14:20 Usha Viveros MD Jul 16, 2017 02:23
[2017-07-15] MEDS: WARFARIN SOD 5 MG TAB PO SCH (16:05)
[2017-07-15] MEDS: methylPREDNISolone SOD SUCC 125 MG/2 ML VIAL IV PUSH SCH (18:16)
[2017-07-16] VITALS: BP 125/64; PULSE 104; PULSE 97; RESP 20; TEMP 98.2; O2SAT 93
[2017-07-16] MEDS: methylPREDNISolone SOD SUCC 125 MG/2 ML VIAL IV PUSH SCH ×2 (00:01→05:17)
[2017-07-16] MEDS: ENOXAPARIN SODIUM 100 MG/ML SYRINGE SQ SCH ×2 (00:02→11:38)
[2017-07-16 04:00] VITALS: BP 108/74; PULSE 107; PULSE 76; RESP 21; TEMP 98.1; O2SAT 94
[2017-07-16] MEDS: ACETAMINOPHEN/HYDROcodone 325 MG/10 MG TAB PO PRN ×2 (05:18→09:20)
[2017-07-16 07:44] LABS: INTERNATIONAL NORMALIZED RATIO 1.3 RATIO; PROTHROMBIN TIME - PATIENT 12.9 SEC (9.8-11.6)
[2017-07-16 08:00] VITALS: PULSE 104
[2017-07-16 08:36] VITALS: BP 131/81; PULSE 87; RESP 18; TEMP 97.7; O2SAT 96
[2017-07-16] MEDS: DOCUSATE SODIUM 50 MG/SENNA 8.6 MG TAB PO SCH (09:19)
[2017-07-16] MEDS: LISINOPRIL 20 MG TAB PO SCH (09:19)
[2017-07-16] MEDS: amLODIPine BESYLATE 5 MG TAB PO SCH (09:19)
[2017-07-16] MEDS: SODIUM CHLORIDE 0.9% FLUSH 10 ML FLUSH IV FLUSH SCH (09:21)
[2017-07-16] MEDS ORDERED: PRED10 PO (10:07)
[2017-07-16] MEDS ORDERED: COUM5TAB PO (10:07)
[2017-07-16] MEDS ORDERED: HYDR-3366 PO (10:07)
[2017-07-16] MEDS ORDERED: ENOX100P SQ (10:07)
--- NOTE | 2017-07-16 10:08 | HHI.DCPOC ---
Discharge Care Plan Diagnosis: (1) DVT (deep venous thrombosis) (2) Pulmonary emboli (3) Hypertension (4) PCOS (polycystic ovarian syndrome) (5) Lupus (6) Antiphospholipid antibody positive Goals to Promote Your Health * To prevent worsening of your condition and complications * To maintain your health at the optimal level Directions to Meet Your Goals Take your medications as prescribed Follow your dietary instruction Follow activity as directed Keep your appointments as scheduled Take your immunizations and boosters as scheduled If your symptoms worsen call your PCP, if no PCP go to Urgent Care Center or Emergency Room Smoking is Dangerous to Your Health. Avoid second hand smoke Call the 24-hour hour crisis hotline for domestic abuse at Montrell Fernandez MD Jul 16, 2017 10:08
--- NOTE | 2017-07-16 10:14 | HHI.DS ---
Discharge Summary Admission Date Jul 12, 2017 at 16:58 Discharge Date: Jul 16, 2017 Admitting Diagnosis RLE DVT; MULTIPLE BILAT PE; DYSPNEA (1) Pulmonary emboli Diagnosis: Principal ICD Codes: I26.99 - Other pulmonary embolism without acute cor pulmonale Status: Acute (2) DVT (deep venous thrombosis) Diagnosis: Principal ICD Codes: I82.409 - Acute embolism and thrombosis of unspecified deep veins of unspecified lower extremity Status: Acute (3) Antiphospholipid antibody positive Diagnosis: Principal ICD Codes: R76.0 - Raised antibody titer Status: Chronic (4) Asthma Diagnosis: Secondary ICD Codes: J45.909 - Unspecified asthma, uncomplicated Status: Chronic (5) HTN (hypertension) Diagnosis: Secondary ICD Codes: I10 - Essential (primary) hypertension Status: Chronic (6) Lupus Diagnosis: Secondary ICD Codes: L93.0 - Discoid lupus erythematosus Status: Chronic (7) PCOS (polycystic ovarian syndrome) Diagnosis: Secondary ICD Codes: E28.2 - Polycystic ovarian syndrome Brief History This is a 26 year old female patient with a past medical history which includes : ITP dx at age 11, antiphospholipid antibody, asthma, migraine, fibromyalgia, GERD, Michael thyroiditis, HTN, Lupus with Lupus nephritis since 2010, 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 Patient was started on oral contraceptives oral contractive 4 months ago. Patient symptoms initially started about one month ago. Patient presented to the ER 06/10/17 with c/o left sided pain dx with gastritis discharged home with Protonix. Patient's symptoms did not improve so she 1presented again to the ER 08/12 dx with PNA treated with Levaquin. Patient has been following weekly with PCP who noticed that patient was limping today. Her PCP ordered outpatient US. US from [facility] showed occlusive DVT popliteal vein extending into the gastrocnemius veins in the calf medially. Patient was then send to the ER by PCP. Patient did also have a trip to Trip to [place], [place] the end of May which was a [address] Patient denies fevers, chills, N/V/D/C. Patient also denies history of DVT or PE in the past. CTA reviewed and reveals: Multifocal bilateral pulmonary emboli. Patchy infiltrates left lower lobe. CBC/BMP: 07/15/17 0540 07/14/17 0806 Significant Findings Laboratory Tests Test 07/13/17 13:20 07/13/17 18:52 07/14/17 08:01 07/14/17 08:06 Activated Partial Thromboplast Time 53.5 SEC (24.3-30.1) 56.9 SEC (24.3-30.1) 61.3 SEC (24.3-30.1) Iron Level 36 MCG/DL (50-170) Percent Iron Saturation 10.5 % (20-50) Ferritin 733 NG/ML (8-252) Thyroid Stimulating Hormone 3rd Gen 4.620 uIU/ML (0.358-3.740) Creatinine 1.35 MG/DL (0.50-1.00) Chloride Level 108 MEQ/L (98-107) Estimat Glomerular Filtration Rate 48 ML/MIN (>89) Test 07/14/17 13:20 07/15/17 05:40 07/16/17 06:40 Red Blood Count 3.52 MIL/MM3 (4.00-5.30) 3.24 MIL/MM3 (4.00-5.30) Hemoglobin 10.0 GM/DL (11.6-15.3) 9.5 GM/DL (11.6-15.3) Hematocrit 30.8 % (35.0-46.0) 28.8 % (35.0-46.0) Neutrophils (%) (Auto) 76.5 % (16.0-70.0) Eosinophils (%) (Auto) 4.2 % (0.0-4.0) White Blood Count 11.7 TH/MM3 (4.0-11.0) Prothrombin Time 12.9 SEC (9.8-11.6) Hospital Course (1) Pulmonary emboli This is a 26 year old female patient with a past medical history which includes : ITP dx at age 11, antiphospholipid antibody, asthma, migraine, fibromyalgia, GERD, Michael thyroiditis, HTN, Lupus with Lupus nephritis since 2010, 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 Patient was started on oral contraceptives oral contractive 4 months ago. Now with DVT per OP US and PE on CT scan. PE and DVT secondary to antiphospholipid antibody with oral contraceptive use ago vs sedentary lifestyle Outpatient US revealed occlusive DVT popliteal vein extending into the gastrocnemius veins in the calf medially. Patient was then send to the ER by PCP. CTA reviewed and reveals: Multifocal bilateral pulmonary emboli. Patchy infiltrates left lower lobe. Pt heparin gtt converted to lovenox 07/14. coumadin started 07/15 more left chest pain as before.....increased lovenox and gave some steroid for possible pleurisy. On 07/16 feels much better. spoke to Dr Viveros..ok for d/c and she will have pt f/u in office next week. We agreed for inr checks 07/19 and 07/20 to be followed by Dr Viveros and further inr's, adjusments to lovenox and coumadin per her orders. planning for at least 3-6months of treatment will give pt limited supply of norco and prednisone for the pain control. DVT (deep venous thrombosis) see above Chronic ITP (idiopathic thrombocytopenia) Patient has followed with [facility] in [place] until 5 years ago, but has stopped going and had also stopped treatment regiment. 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 need follow up after DC Antiphospholipid antibody syndrome see above Asthma Duonebs as needed not in acute exacerbation at this time HTN (hypertension) Continue patient's home amlodipine 5 mg PO daily monitor BP trend Lupus Patient has followed with [facility] in [place] until 5 years ago, but has stopped going and had also stopped treatment regiment. 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 need medical records receptionist after DC PCOS (polycystic ovarian syndrome) Patient on metformin 1000 mg PO BID will hold metformin for 48 hours due to contrast from CT chest (2) DVT (deep venous thrombosis) ICD Codes: I82.409 - Acute embolism and thrombosis of unspecified deep veins of unspecified lower extremity Status: Acute Plan: see above (3) Antiphospholipid antibody positive ICD Codes: R76.0 - Raised antibody titer Status: Chronic (4) Asthma ICD Codes: J45.909 - Unspecified asthma, uncomplicated Status: Chronic (5) HTN (hypertension) ICD Codes: I10 - Essential (primary) hypertension Status: Chronic (6) Lupus ICD Codes: L93.0 - Discoid lupus erythematosus Status: Chronic (7) PCOS (polycystic ovarian syndrome) ICD Codes: E28.2 - Polycystic ovarian syndrome Pt Condition on Discharge: Stable Discharge Disposition: Discharge Home Discharge Instructions DIET: Follow Instructions for: As Tolerated, No Restrictions Follow up Referrals: Oncology/Hematology - 3-5 Days with Usha Viveros MD New Medications: Hydrocodone-Acetaminophen ([place]) 10-325 Mg Tab 1 TAB PO Q4H PRN for PAIN, #30 TAB 0 Refills Prednisone (Prednisone) 10 Mg Tab 10 MG PO DIRECTED for Inflammation for 10 Days, TAB 0 Refills 20mg po bid x 3 days, 10mg po bid x 3 days, 10mg po daily x 4 days Enoxaparin Inj (Lovenox Inj) 100 Mg/Ml Syr 100 MG SQ Q12H for dvt/PE for 5 Days, INJECTION Warfarin (Coumadin) 5 Mg Tab 5 MG PO DAILY@1600 for dvt/PE, #30 TAB 3 Refills Continued Medications: Albuterol 18 GM Inh (Ventolin Hfa 18 GM Inh) 90 Mcg/Act Aer 2 PUFF INH Q6H PRN for SHORTNESS OF BREATH, #1 INHALER 0 Refills Amlodipine (Amlodipine) 5 Mg Tab 5 MG PO DAILY for Blood Pressure Management, #30 TAB 0 Refills Benazepril (Benazepril) 20 Mg Tab 20 MG PO DAILY for Blood Pressure Management, #30 TAB 0 Refills Nhygdfzizb-Frjojrplxkbpi-Kqjzxrwq (Cksdwdzryo-Dtehznrvmfvyf-Giykogzy) 50-325-40 Mg Tab 1 TAB PO Q4H PRN for HEADACHE, TAB 0 Refills Do not exceed 6 tablets/day. Metformin (Metformin) 500 Mg Tab 1000 MG PO BIDPC for Blood Sugar Management, #60 TAB 0 Refills Discontinued Medications: Hydrocodone-Acetaminophen ([place]) 5 Mg-325 Mg Tab 1 TAB PO Q4H PRN for PAIN, #8 TAB 0 Refills Ibuprofen (Ibuprofen) 800 Mg Tab 800 MG PO Q6HR PRN for PAIN, #30 TAB 0 Refills Levofloxacin (Levofloxacin) 500 Mg Tablet 500 MG PO DAILY for Infection for 10 Days, #10 TAB 0 Refills [ control] () 1 TAB DAILY ortho-tricyclen Montrell Fernandez MD Jul 16, 2017 10:14
--- NOTE | 2017-07-16 12:00 | PD.ONC.PN ---
Subjective Subjective Remarks Afebrile overnight. Patient feeling much better today. Pain in chest is gone. She is hopeful to go home today. Objective Data Date Time Temp Pulse Resp B/P (MAP) Pulse Ox O2 Delivery O2 Flow Rate FiO2 07/16/17 08:36 97.7 87 18 131/81 (98) 96 07/16/17 08:00 104 07/16/17 07:00 Room Air 07/16/17 04:00 76 07/16/17 04:00 98.1 107 21 108/74 (85) 94 07/16/17 00:00 98.2 104 20 125/64 (84) 93 07/16/17 00:00 97 07/15/17 20:00 103 07/15/17 20:00 98.1 100 21 149/73 (98) 96 07/15/17 20:00 Room Air 07/15/17 16:12 98.4 105 18 129/78 (95) 95 07/15/17 14:11 16 07/15/17 12:15 98.0 109 17 125/72 (89) 96 07/16/17 07/16/17 07/16/17 07:00 15:00 23:00 Intake Total 280 ml Balance 280 ml Result Diagram: 07/15/17 0540 07/14/17 0806 Laboratory Results Laboratory Tests Test 07/16/17 06:40 Prothrombin Time 12.9 SEC Prothromb Time International Ratio 1.3 RATIO Culture Results Microbiology Date/Time Source Procedure Growth Status 07/13/17 21:55 Stool Stool Stool Occult Blood (EDGAR) - Final HEMOCCULT NEGATIVE Complete Administered Medications Medications (Trade) Dose Ordered Sig/Roxi Route PRN Reason Start Time Stop Time Status Last Admin Dose Admin Sodium Chloride (NS Flush) 2 ml BID IV FLUSH 07/12/17 21:00 07/16/17 09:21 Senna/Docusate Sodium (Cassie-Colace) 1 tab BID PO 07/12/17 21:00 07/16/17 09:19 Amlodipine Besylate (Norvasc) 5 mg DAILY PO 07/13/17 09:00 07/16/17 09:19 Lisinopril (Prinivil) 20 mg DAILY PO 07/13/17 09:00 07/16/17 09:19 Warfarin Sodium (Coumadin) 5 mg DAILY@1600 PO 07/14/17 16:00 07/15/17 16:05 Enoxaparin Sodium (Lovenox Inj) 100 mg Q12H SQ 07/15/17 12:00 07/16/17 11:38 Acetaminophen/ Hydrocodone Bitart ([place] 10-325 Mg) 1 tab Q4H PRN PO pain 3-10 07/15/17 10:30 07/16/17 09:20 Objective Remarks GENERAL: Young woman, sitting up in bed in nad. SKIN: Warm and dry. HEAD: Normocephalic. EYES: No injection or drainage. NECK: Supple, trachea midline. CARDIOVASCULAR: Regular rate and rhythm RESPIRATORY: Breath sounds equal bilaterally. No accessory muscle use. GASTROINTESTINAL: Abdomen soft, non-tender, nondistended. EXTREMITIES: No cyanosis NEUROLOGICAL: awake and alert. normal speech. moving extremities. Assessment/Plan Assessment 26y/o female with PE/DVT history of antiphospholipid antibody syndrome. + Oral contraceptive use. + Lupus with lupus nephritis and with this involvement of the liver--> previously followed by a vp ad sales west at [facility], however, currently she is under the care of her PCP h/o Michael's thyroiditis, hypertension, lupus with lupus nephritis, chronic kidney disease, polycystic ovarian syndrome and history of ITP diagnosed at age 11. h/p Chronic kidney disease -->due to lupus nephritis. Plan 1. Acute DVT, PE--> clear for discharge. continue Lovenox/coumadin. will check INR Wednesday and Wednesday of next week. Patient lab slip is in discharge paperwork and I advised her to call our clinic Wednesday and Wednesday and ask for the result and an update on how much coumadin she should take daily. 2. follow up with Dr. Viveros next week in the clinic Attending Statement The exam, history, and the medical decision-making described in the above note were completed with the assistance of the mid-level provider. I reviewed and agree with the findings presented. I attest that I had a [id number] encounter with the patient on the same day, and personally performed and documented my assessment and findings in the medical record.26 yoF with SLE, lupus nephritis, PCOS admitted with provoked VTE on OCP. On lovenox with transition to warfarin. Close follow up in clinic next week. Martita Hess Jul 16, 2017 12:00 Usha Viveros MD Jul 16, 2017 20:13
== END 2017-07-16 12:17 | disposition home or self-care (01) | DRG 299 ==
LOC: NEPE 11:24 → NEDA 14:41 → INTOOBSV 14:41 → OBSVTOIN 16:58 → N04A 18:10
PROVIDERS: ADMIT Hospitalist; ATTEND Hospitalist
DX: I82.431 Acute embolism and thrombosis of right popliteal vein (principal); I26.99 Other pulmonary embolism without acute cor pulmonale; D69.3 Immune thrombocytopenic purpura; D68.61 Antiphospholipid syndrome; N18.3 Chronic kidney disease, stage 3 (moderate); K76.0 Fatty (change of) liver, not elsewhere classified; M32.14 Glomerular disease in systemic lupus erythematosus; I12.9 Hypertensive chronic kidney disease with stage 1 through stage 4 chronic kidney disease, or unspecified chronic kidney disease; E28.2 Polycystic ovarian syndrome; K21.9 Gastro-esophageal reflux disease without esophagitis; R00.0 Tachycardia, unspecified; M79.7 Fibromyalgia; E06.3 Autoimmune thyroiditis; M32.19 Other organ or system involvement in systemic lupus erythematosus; J45.909 Unspecified asthma, uncomplicated; D63.8 Anemia in other chronic diseases classified elsewhere; Z79.84 Long term (current) use of oral hypoglycemic drugs; Z88.1 Allergy status to other antibiotic agents; Z91.012 Allergy to eggs
CPT/HCPCS: 71275; 80048; 81001; 82272; 82607; 82728; 82746; 83540; 83550; 84439; 84443; 84703; 85025; 85027; 85610; 85730; J1644; J1650; J2270; J2930; Q9967

== ENCOUNTER 2017-07-20 14:53 | Emergency (ER) | payer OTHER ==
[~2017-07-20] VITALS: Ht 160 cm; Wt 90.9 kg
[~2017-07-20 14:53] MED LIST changes: +COUM5TAB PO; +ENOX100P SQ; +HYDR-3366 PO; -IBUP1TAB7 PO; -LEVO500T8 PO; -NORC5TAB PO; +PRED10 PO; -PROT40TA PO; -WELLTAB39 PO; -birth control
[2017-07-20 14:55] VITALS: BP 142/70; PULSE 112; RESP 22; TEMP 98.1; O2SAT 98
[2017-07-20 15:33] VITALS: BP 147/92; PULSE 101; RESP 20; O2SAT 98
--- NOTE | 2017-07-20 15:37 | PD ---
HPI Chief Complaint: Respiratory Symptoms Time Seen by Provider: 15:05 Travel History International Travel<30 days: No Contact w/Intl Traveler<30days: No Traveled to known affect area: No History of Present Illness HPI 26-year-old female complains of increasing chest pain and shortness of breath. Patient was admitted to [facility] 8 days ago for right leg DVT and PE. Patient was put on Lovenox and Coumadin. Patient had INR checked this morning. Patient does not know the results of INR. Patient states that she has increasing anterior chest pain and shortness of breath today. Patient states the pain aching pain and sharp pain localized to the anterior chest wall. Patient denies any pain radiation. Patient still taking Coumadin as directed. Patient states that she has some mild cough this morning with blood-tinged sputum. Patient denies any fever chills. Patient has history of lupus with lupus nephritis, antiphospholipid antibody syndrome, Michael's thyroiditis, hypertension, chronic kidney disease, polycystic ovarian syndrome and history of ITP. Patient is on Lovenox 100 mg subcutaneous every 12 hours and Coumadin 5 mg by mouth daily. PFSH Past Medical History Hx Anticoagulant Therapy: Yes (LOVENOX AND WARFARIN) Arthritis: Yes (LUPUS) Asthma: Yes ([place]) Autoimmune Disease: Yes (I.T.P., LUPUS, SJOGREN, ) Blood Disorders: Yes (ITP) Anxiety: No Depression: No Cancer: No Cardiovascular Problems: Yes Diabetes: No Diminished Hearing: No Endocrine: No Gastrointestinal Disorders: Yes (LUPUS, LIVER DISEASE, PCOS, ITP, SHOGRANS, GERD) Glaucoma: No Genitourinary: Yes Headaches: Yes Hepatitis: No Hiatal Hernia: No Hypertension: No Immune Disorder: Yes (ANTIPHOSPHOLIPID ANTIBODY SYNDROME) Musculoskeletal: Yes Neurologic: Yes (NECK ACHES) Psychiatric: No Reproductive: Yes (PCOS) Respiratory: Yes (ASTHMA) Immunizations Current: Yes Migraines: Yes Thyroid Disease: Yes (HYPOTHYROID) ?: Not LMP: 06/19/2017 Menopausal: No : 0 Past Surgical History Abdominal Surgery: Yes (APPENDECTOMY, GALLBLADDER) AICD: No Appendectomy: Yes Cardiac Surgery: No Cholecystectomy: Yes Ear Surgery: No Endocrine Surgery: No Eye Surgery: No Genitourinary Surgery: No Gynecologic Surgery: No Joint Replacement: No Neurologic Surgery: No Oral Surgery: No Pacemaker: No Thoracic Surgery: No Other Surgery: Yes Social History Alcohol Use: Yes (on occasion) Tobacco Use: No Substance Use: No Allergies-Medications (Allergen,Severity, Reaction): Coded Allergies: Rho(D) immune globulin (Verified Allergy, Severe, SEIZURES, 07/20/17) amoxicillin (Verified Allergy, Severe, DENIES, 07/20/17) clavulanic acid (Verified Allergy, Severe, RASH, 07/20/17) egg (Verified Allergy, Severe, HIVES/SWELLING, 07/20/17) ethinyl estradiol (Verified Allergy, Severe, Nausea/Vomiting, 07/20/17) levonorgestrel (Verified Allergy, Severe, Nausea/Vomiting, 07/20/17) Reported Meds & Prescriptions Reported Meds & Active Scripts Active Prednisone 10 Mg Tab 10 Mg PO DIRECTED 10 Days 20mg po bid x 3 days, 10mg po bid x 3 days, 10mg po daily x 4 days [place] (Hydrocodone-Acetaminophen) 10-325 Mg Tab 1 Tab PO Q4H PRN Coumadin (Warfarin) 5 Mg Tab 5 Mg PO DAILY@1600 Lovenox Inj (Enoxaparin Sodium) 100 Mg/Ml Syr 100 Mg SQ Q12H 5 Days Reported Gvumhdlxhs-Widaqartulpdr-Duzaonjq 50-325-40 Mg Tab 1 Tab PO Q4H PRN Do not exceed 6 tablets/day. Ventolin Hfa 18 GM Inh (Albuterol Sulfate) 90 Mcg/Act Aer 2 Puff INH Q6H PRN Benazepril (Benazepril HCl) 20 Mg Tab 20 Mg PO DAILY Amlodipine (Amlodipine Besylate) 5 Mg Tab 5 Mg PO DAILY Metformin (Metformin HCl) 500 Mg Tab 1,000 Mg PO BIDPC Review of Systems General / Constitutional: No: Fever Eyes: No: Visual changes HENT: No: Headaches Cardiovascular: Positive: Chest Pain or Discomfort Respiratory: Positive: Cough, Hemoptysis, No: Shortness of Breath Gastrointestinal: No: Abdominal Pain Genitourinary: No: Dysuria Musculoskeletal: No: Pain Skin: No Rash Neurologic: No: Weakness Psychiatric: No: Depression Endocrine: No: Polydipsia Hematologic/Lymphatic: No: Easy Bruising Physical Exam Narrative GENERAL: Well-nourished, well-developed patient. SKIN: Focused skin assessment warm/dry. HEAD: Normocephalic. EYES: No scleral icterus. No injection or drainage. NECK: Supple, trachea midline. No JVD or lymphadenopathy. CARDIOVASCULAR: Regular rate and rhythm without murmurs, gallops, or rubs. RESPIRATORY: Breath sounds equal bilaterally. No accessory muscle use. GASTROINTESTINAL: Abdomen soft, non-tender, nondistended. MUSCULOSKELETAL: No cyanosis, or edema. BACK: Nontender without obvious deformity. No CVA tenderness. Neurologic exam normal. Data Data Last Documented VS Vital Signs Date Time Temp Pulse Resp B/P (MAP) Pulse Ox O2 Delivery O2 Flow Rate FiO2 07/20/17 15:38 32 97 Room Air 07/20/17 15:33 101 07/20/17 14:55 98.1 Orders Orders Complete Blood Count With Diff (07/20/17 15:24) Basic Metabolic Panel (Bmp) (07/20/17 15:24) Prothrombin Time / Inr (Pt) (07/20/17 15:24) Act Partial Throm Time (Ptt) (07/20/17 15:24) Chest, Single Ap (07/20/17 15:24) Iv Access Insert/Monitor (07/20/17 15:24) Ecg Monitoring (07/20/17 15:24) Oximetry (07/20/17 15:24) Creatine Kinase (Cpk) (07/20/17 15:35) Troponin I (07/20/17 15:35) Labs Laboratory Tests Test 07/20/17 15:25 White Blood Count 18.4 TH/MM3 Red Blood Count 3.74 MIL/MM3 Hemoglobin 10.6 GM/DL Hematocrit 32.7 % Mean Corpuscular Volume 87.5 FL Mean Corpuscular Hemoglobin 28.5 PG Mean Corpuscular Hemoglobin Concent 32.6 % Red Cell Distribution Width 16.6 % Platelet Count 274 TH/MM3 Mean Platelet Volume 6.5 FL Neutrophils (%) (Auto) 83.9 % Lymphocytes (%) (Auto) 7.5 % Monocytes (%) (Auto) 7.6 % Eosinophils (%) (Auto) 0.5 % Basophils (%) (Auto) 0.5 % Neutrophils # (Auto) 15.4 TH/MM3 Lymphocytes # (Auto) 1.4 TH/MM3 Monocytes # (Auto) 1.4 TH/MM3 Eosinophils # (Auto) 0.1 TH/MM3 Basophils # (Auto) 0.1 TH/MM3 CBC Comment AUTO DIFF Differential Total Cells Counted 100 Neutrophils % (Manual) 76 % Band Neutrophils % 5 % Lymphocytes % 10 % Monocytes % 7 % Neutrophils # (Manual) 15.3 TH/MM3 Metamyelocytes 2 % Differential Comment FINAL DIFF MANUAL Platelet Estimate NORMAL Platelet Morphology Comment NORMAL Prothrombin Time 28.1 SEC Prothromb Time International Ratio 2.8 RATIO Activated Partial Thromboplast Time 70.3 SEC Blood Urea Nitrogen 24 MG/DL Creatinine 1.56 MG/DL Random Glucose 81 MG/DL Calcium Level 8.8 MG/DL Sodium Level 138 MEQ/L Potassium Level 4.2 MEQ/L Chloride Level 106 MEQ/L Carbon Dioxide Level 25.0 MEQ/L Anion Gap 7 MEQ/L Estimat Glomerular Filtration Rate 41 ML/MIN Total Creatine Kinase 32 U/L Troponin I LESS THAN 0.02 NG/ML MDM Medical Decision Making Medical Screen Exam Complete: Yes Emergency Medical Condition: Yes Interpretation(s) Last Impressions Chest X-Ray 07/20/17 1524 Signed Impressions: Service Date/Time: Thursday, July 20, 2017 15:37 - CONCLUSION: Small lung volumes with minimal atelectasis right lung base. Carrington Ghotra MD 1700 p.m. CBC WBC 18.4. Hemoglobin 10.6 hematocrit 32.7. Cardiac enzymes are normal. BUN 24. Creatinine 1.56. INR 2.8. Differential Diagnosis Differential diagnosis including hypercoagulation, pneumothorax, pneumonia, CT. Narrative Course 26-year-old female with history of DVT and PE and on Lovenox and Coumadin. Patient started having increasing chest pain, short as of breath and coughing up blood. Diagnosis Primary Impression: Hemoptysis Additional Impression: Anticoagulation monitoring, special range Patient Instructions: General Instructions Additional Instructions: Stop Lovenox. Continue with Coumadin. Return in a.m. for recheck of INR. Return immediately if increasing hemoptysis, increased shortness of breath. Med/Other Pt SpecificInfo: Med Stopped Disposition: DISCHARGE HOME Condition: Stable Philippe Hector MD Jul 20, 2017 15:37
[2017-07-20 15:38] VITALS: RESP 32; O2SAT 97
[2017-07-20 15:45] LABS: AUTOMATED NEUTROPHIL # 15.4 TH/MM3 (1.8-7.7); BASOPHIL # 0.1 TH/MM3 (0-0.2); BASOPHIL % 0.5 % (0.0-2.0); EOSINOPHIL # 0.1 TH/MM3 (0-0.4); EOSINOPHIL % 0.5 % (0.0-4.0); HEMATOCRIT 32.7 % (35.0-46.0); HEMOGLOBIN 10.6 GM/DL (11.6-15.3); LYMPH % 7.5 % (9.0-44.0); LYMPHOCYTE # 1.4 TH/MM3 (1.0-4.8); MEAN CELL VOLUME 87.5 FL (80.0-100.0); MEAN CORPUSCULAR HEMOGLOBIN 28.5 PG (27.0-34.0); MEAN CORPUSCULAR HGB CONC 32.6 % (32.0-36.0); MEAN PLATELET VOLUME 6.5 FL (7.0-11.0); MONO % 7.6 % (0.0-8.0); MONOCYTE # 1.4 TH/MM3 (0-0.9); NEUT % 83.9 % (16.0-70.0); PLATELET COUNT 274 TH/MM3 (150-450); RED BLOOD COUNT 3.74 MIL/MM3 (4.00-5.30); RED CELL DISTRIBUTION WIDTH 16.6 % (11.6-17.2); WHITE BLOOD COUNT 18.4 TH/MM3 (4.0-11.0)
[2017-07-20 15:57] LABS: INTERNATIONAL NORMALIZED RATIO 2.8 RATIO; PROTHROMBIN TIME - PATIENT 28.1 SEC (9.8-11.6)
--- NOTE | 2017-07-20 16:01 | RADRPT ---
EXAM DATE/TIME: 07/20/2017 15:37 [facility] COMPARISON: CHEST SINGLE AP, June 12, 2017, 15:09. INDICATIONS : Short of breath. MEDICAL HISTORY : Lupus. Renal failure, chronic. SURGICAL HISTORY : Appendectomy. Cholecystectomy. ENCOUNTER: Initial ACUITY: 1 day PAIN SCORE: 0/10 LOCATION: Bilateral chest FINDINGS: A single view of the chest demonstrates the lungs to be poorly aerated without evidence of mass, infi ltrate or effusion other than minimal right lower lobe atelectasis. The cardiomediastinal contours a re unremarkable. Osseous structures are intact. CONCLUSION: Small lung volumes with minimal atelectasis right lung base. Carrington Ghotra MD on July 20, 2017 at 15:57 Board Certified Radiologist. This report was verified electronically.
[2017-07-20 16:03] LABS: CALCIUM 8.8 MG/DL (8.5-10.1); CREATININE 1.56 MG/DL (0.50-1.00)
[2017-07-20 16:14] LABS: BANDS 5 % (0-6); LYMPHOCYTES 10 % (9-44); METAMYELOCYTES 2 % (0-1); MONOCYTES 7 % (0-8); NEUTROPHIL # MANUAL DIFF 15.3 TH/MM3 (1.8-7.7); POLYS (SEG NEUTROPHILS) 76 % (16-70)
[2017-07-20 16:19] LABS: TROPONIN I LESS THAN 0.02 NG/ML (0.02-0.05)
== END 2017-07-20 17:36 | disposition home or self-care (01) ==
LOC: NEPE 14:53
DX: R04.2 Hemoptysis (principal); D68.61 Antiphospholipid syndrome; E28.2 Polycystic ovarian syndrome; E06.3 Autoimmune thyroiditis; M32.14 Glomerular disease in systemic lupus erythematosus; Z79.01 Long term (current) use of anticoagulants
CPT/HCPCS: 71010; 80048; 82550; 84484; 85007; 85027; 85610; 85730; 99284

== ENCOUNTER 2017-07-21 11:07 | Emergency (ER) | payer OTHER ==
[2017-07-21 11:09] VITALS: BP 146/88; PULSE 109; RESP 16; TEMP 98.4; O2SAT 100
--- NOTE | 2017-07-21 11:27 | PD ---
HPI Chief Complaint: Abnormal Results Time Seen by Provider: 11:15 Travel History International Travel<30 days: No Contact w/Intl Traveler<30days: No Traveled to known affect area: No History of Present Illness HPI 26-year-old female presents to the emergency department for an INR check. Patient states that she was discharged yesterday from the hospital with a diagnosis of PE and DVT. She was advised to follow up today for a recheck of her INR to ensure stability of it. She has been unable to see her shellfish sorter , Dr. Silvino Viveros. Patient has a history of lupus, PCO2 was, antiphospholipid syndrome, and Michael's. Patient states she is still symptomatic with chest discomfort, especially with inspiration and leg pain secondary to her DVT. She has taken the medication that she was discharged with yesterday. PFSH Past Medical History Hx Anticoagulant Therapy: Yes (LOVENOX AND WARFARIN) Arthritis: Yes (LUPUS) Asthma: Yes (Inhailer) Autoimmune Disease: Yes (I.T.P., LUPUS, SJOGREN, ) Blood Disorders: Yes (ITP) Anxiety: No Depression: No Cancer: No Cardiovascular Problems: Yes Diabetes: No Diminished Hearing: No Endocrine: No Gastrointestinal Disorders: Yes (LUPUS, LIVER DISEASE, PCOS, ITP, SHOGRANS, GERD) Glaucoma: No Genitourinary: Yes Headaches: Yes Hepatitis: No Hiatal Hernia: No Hypertension: No Immune Disorder: Yes (ANTIPHOSPHOLIPID ANTIBODY SYNDROME) Musculoskeletal: Yes Neurologic: Yes (NECK ACHES) Psychiatric: No Reproductive: Yes (PCOS) Respiratory: Yes (ASTHMA) Immunizations Current: Yes Migraines: Yes Thyroid Disease: Yes (HYPOTHYROID) ?: Not Menopausal: No : 0 Para: 0 Miscarriage: 0 : 0 Past Surgical History Abdominal Surgery: Yes (APPENDECTOMY, GALLBLADDER) AICD: No Appendectomy: Yes Cardiac Surgery: No Cholecystectomy: Yes Ear Surgery: No Endocrine Surgery: No Eye Surgery: No Genitourinary Surgery: No Gynecologic Surgery: No Joint Replacement: No Neurologic Surgery: No Oral Surgery: No Pacemaker: No Thoracic Surgery: No Other Surgery: Yes Social History Alcohol Use: Yes (on occasion) Tobacco Use: No Substance Use: No Allergies-Medications (Allergen,Severity, Reaction): Coded Allergies: Rho(D) immune globulin (Verified Allergy, Severe, SEIZURES, 07/21/17) amoxicillin (Verified Allergy, Severe, DENIES, 07/21/17) clavulanic acid (Verified Allergy, Severe, RASH, 07/21/17) egg (Verified Allergy, Severe, HIVES/SWELLING, 07/21/17) ethinyl estradiol (Verified Allergy, Severe, Nausea/Vomiting, 07/21/17) levonorgestrel (Verified Allergy, Severe, Nausea/Vomiting, 07/21/17) Reported Meds & Prescriptions Reported Meds & Active Scripts Active Prednisone 10 Mg Tab 10 Mg PO DIRECTED 10 Days 20mg po bid x 3 days, 10mg po bid x 3 days, 10mg po daily x 4 days Curtice (Hydrocodone-Acetaminophen) 10-325 Mg Tab 1 Tab PO Q4H PRN Coumadin (Warfarin) 5 Mg Tab 5 Mg PO DAILY@1600 Lovenox Inj (Enoxaparin Sodium) 100 Mg/Ml Syr 100 Mg SQ Q12H 5 Days Reported Bunjatvsqe-Qiyhykmislhlg-Hrlhmgdo 50-325-40 Mg Tab 1 Tab PO Q4H PRN Do not exceed 6 tablets/day. Ventolin Hfa 18 GM Inh (Albuterol Sulfate) 90 Mcg/Act Aer 2 Puff INH Q6H PRN Benazepril (Benazepril HCl) 20 Mg Tab 20 Mg PO DAILY Amlodipine (Amlodipine Besylate) 5 Mg Tab 5 Mg PO DAILY Metformin (Metformin HCl) 500 Mg Tab 1,000 Mg PO BIDPC Review of Systems Except as stated in HPI: all other systems reviewed are Neg Physical Exam Narrative GENERAL: Well-nourished, well-developed patient. SKIN: Focused skin assessment warm/dry. HEAD: Normocephalic. Atraumatic EYES: No scleral icterus. No injection or drainage. NECK: Supple, trachea midline. No JVD. CARDIOVASCULAR: Regular rate and rhythm without murmurs, gallops, or rubs. RESPIRATORY: Breath sounds equal bilaterally. MUSCULOSKELETAL: No cyanosis, or edema. BACK: Nontender without obvious deformity. No CVA tenderness. Data Data Last Documented VS Vital Signs Date Time Temp Pulse Resp B/P (MAP) Pulse Ox O2 Delivery O2 Flow Rate FiO2 07/21/17 11:09 98.4 109 16 146/88 (107) 100 Orders Orders Prothrombin Time / Inr (Pt) (07/21/17 11:15) Ed Discharge Order (07/21/17 12:23) Labs Laboratory Tests Test 07/21/17 11:20 Prothrombin Time 30.3 SEC Prothromb Time International Ratio 3.0 RATIO MDM Medical Decision Making Medical Screen Exam Complete: Yes Emergency Medical Condition: Yes Differential Diagnosis Lab check, lab abnormality, ITP Narrative Course 26-year-old female presents to the emergency department for an INR check. Patient states that she was discharged yesterday from the hospital with a diagnosis of PE and DVT. She was advised to follow up today for a recheck of her INR to ensure stability of it. She has been unable to see her shellfish sorter , Dr. Silvino Viveros. Patient has a history of lupus, PCO2 was, antiphospholipid syndrome, and Michael's. Patient states she is still symptomatic with chest discomfort, especially with inspiration and leg pain secondary to her DVT. She has taken the medication that she was discharged with yesterday. Vital signs stable Patient has a close follow-up with primary care physician in shellfish sorter. I explained the importance of following up as recommended by her specialist. Advised she continue her pain medications as needed. Diagnosis Primary Impression: Anticoagulation goal of INR 2 to 3 Additional Impression: Encounter for laboratory test Referrals: Usha Viveros MD Primary Care Physician Additional Instructions: Follow up with your primary care physician within 2-3 days. If your symptoms persist or worsen, return to the emergency department. Follow-up with her shellfish sorter as recommended. Your INR is 3.0. I recommend follow-up for a repeat INR in 2-3 days. Disposition: 01 DISCHARGE HOME Condition: Stable Joann Koch Jul 21, 2017 11:27
[2017-07-21 12:12] LABS: PROTHROMBIN TIME - PATIENT 30.3 SEC (9.8-11.6)
== END 2017-07-21 12:45 | disposition home or self-care (01) ==
LOC: NEPK 11:07
DX: R07.89 Other chest pain (principal); M32.9 Systemic lupus erythematosus, unspecified; D68.61 Antiphospholipid syndrome; E06.3 Autoimmune thyroiditis; K21.9 Gastro-esophageal reflux disease without esophagitis; J45.909 Unspecified asthma, uncomplicated; E03.9 Hypothyroidism, unspecified; Z79.01 Long term (current) use of anticoagulants; Z79.899 Other long term (current) drug therapy
CPT/HCPCS: 85610; 99281

== ENCOUNTER 2018-01-09 19:58 | Emergency (ER) | payer OTHER ==
[~2018-01-09] VITALS: Ht 160 cm; Wt 100.0 kg
[2018-01-09] MEDS ORDERED: IODIXANOL 320 MG/ML 10 ML VIAL (for Rad CT) IVCONTRAST ONE (19:59)
[2018-01-09 20:10] VITALS: BP 149/72; PULSE 100; RESP 18; TEMP 98.8; O2SAT 100
[2018-01-09 20:20] VITALS: BP 140/95; PULSE 100; RESP 18; O2SAT 99
[2018-01-09] MEDS ORDERED: OXYC-392 PO (20:20)
[2018-01-09] MEDS ORDERED: PLAQ200T PO (20:20)
[2018-01-09 20:30] VITALS: RESP 20; O2SAT 97
[2018-01-09] MEDS ORDERED: METOCLOPRAMIDE HCL 10 MG/2 ML VIAL IV PUSH ONE (20:30)
[2018-01-09] MEDS ORDERED: HYDROmorphone HCL PF 1 MG/ML VIAL IV PUSH ONE (20:30)
[2018-01-09] MEDS ORDERED: HYDROmorphone HCL PF 2 MG/ML VIAL IV PUSH ONE (20:45)
[2018-01-09 20:55] LABS: AUTOMATED NEUTROPHIL # 6.2 TH/MM3 (1.8-7.7); BASOPHIL # 0.1 TH/MM3 (0-0.2); BASOPHIL % 0.7 % (0.0-2.0); EOSINOPHIL # 0.5 TH/MM3 (0-0.4); EOSINOPHIL % 4.9 % (0.0-4.0); HEMATOCRIT 44.6 % (35.0-46.0); LYMPH % 27.3 % (9.0-44.0); LYMPHOCYTE # 2.8 TH/MM3 (1.0-4.8); MEAN CELL VOLUME 81.8 FL (80.0-100.0); MEAN CORPUSCULAR HEMOGLOBIN 27.5 PG (27.0-34.0); MEAN CORPUSCULAR HGB CONC 33.7 % (32.0-36.0); MEAN PLATELET VOLUME 7.6 FL (7.0-11.0); MONO % 7.3 % (0.0-8.0); MONOCYTE # 0.8 TH/MM3 (0-0.9); NEUT % 59.8 % (16.0-70.0); PLATELET COUNT 369 TH/MM3 (150-450); RED BLOOD COUNT 5.46 MIL/MM3 (4.00-5.30); RED CELL DISTRIBUTION WIDTH 15.2 % (11.6-17.2); WHITE BLOOD COUNT 10.4 TH/MM3 (4.0-11.0)
[2018-01-09 21:03] LABS: INTERNATIONAL NORMALIZED RATIO 1.4 RATIO; PROTHROMBIN TIME - PATIENT 14.2 SEC (9.8-11.6)
--- NOTE | 2018-01-09 21:05 | RADRPT ---
EXAM DATE: 01/09/2018 8:47 PM EDT AGE/SEX: 27 years / Female INDICATIONS: Chest pain. Upper right abdomen pain. CLINICAL DATA: This is the patient's initial encounter. Patient reports that signs and symptoms have been present for 2 days and indicates a pain score of 7/10. MEDICAL/SURGICAL HISTORY: . Lupus. Renal failure, chronic. . Appendectomy. Cholecystectomy. COMPARISON: [facility] [place], CHEST SINGLE AP, 07/20/2017. . FINDINGS: A single AP view of the chest demonstrates the lungs to be symmetrically aerated without evidence of mass, infiltrate or effusion. Minimal basilar density most characteristic of atelectasis. The cardiom ediastinal contours are unremarkable. Osseous structures are intact. CONCLUSION: Minimal basilar atelectasis. No consolidation or effusion. Electronically signed by: Sam Bolton MD 01/09/2018 9:04 PM EDT
[2018-01-09 21:21] LABS: ALBUMIN 3.8 GM/DL (3.4-5.0); ALT (GPT) 44 U/L (10-53); AST (GOT) 25 U/L (15-37); BICARBONATE 20.5 MEQ/L (21.0-32.0); BLOOD UREA NITROGEN 25 MG/DL (7-18); CALCIUM 8.7 MG/DL (8.5-10.1); CHLORIDE 108 MEQ/L (98-107); CREATININE 1.62 MG/DL (0.50-1.00); GLOMERULAR FILTRATION RATE 39 ML/MIN (>89); GLUCOSE,RANDOM 75 MG/DL (74-106); SODIUM (NA) 140 MEQ/L (136-145)
--- NOTE | 2018-01-09 21:21 | PD ---
HPI Chief Complaint: Abdominal Pain Time Seen by Provider: 20:16 Travel History International Travel<30 days: No Contact w/Intl Traveler<30days: No Traveled to known affect area: No History of Present Illness HPI 27-year-old female that presents to the ED for evaluation of I upper quadrant abdominal pain. Per patient she has had this for about 2 days. Per patient she has had this since yesterday. Patient is progressively getting worsening is worse with deep breaths which is what concerns her. She has significant history of Michael thyroiditis, lupus, polycystic kidney disease as well as PEs in the past. Per patient she also has a history of antiphospholipid antibodies. She has had PEs last year and the symptoms are very similar to what she is having now. She states that she does not feel short of breath but she does have pain when she takes a deep breath which is what scared her. She denies any fevers chills or sweats. No cough or runny nose. States that she had her gallbladder and appendix out. She follows with her doctors and apparently she has had some issues with her kidneys which did think is related to the lupus. She is currently not taking any prednisone for the lupus. She states that her pain currently is 8 out of 10 on the right chest. Denies any recent travel. States compliant with her Coumadin and she states that her last level was in the twos but she does not remember how long ago was at. Denies any other medical issues at this time. PFSH Past Medical History Hx Anticoagulant Therapy: Yes (LOVENOX AND WARFARIN) Arthritis: Yes (LUPUS) Asthma: Yes (Inhailer) Autoimmune Disease: Yes (I.T.P., LUPUS, SJOGREN, ) Blood Disorders: Yes (ITP) Anxiety: No Depression: No Cancer: No Cardiovascular Problems: Yes Diabetes: No Diminished Hearing: No Endocrine: No Gastrointestinal Disorders: Yes (LUPUS, LIVER DISEASE, PCOS, ITP, SHOGRANS, GERD) Glaucoma: No Genitourinary: Yes Headaches: Yes Hepatitis: No Hiatal Hernia: No Hypertension: No Immune Disorder: Yes (ANTIPHOSPHOLIPID ANTIBODY SYNDROME) Medical other: Yes (ITP, lupus, pcos, MIGRAINE, TERESA) Musculoskeletal: Yes Neurologic: Yes (NECK ACHES) Psychiatric: No Reproductive: Yes (PCOS) Respiratory: Yes (ASTHMA) Immunizations Current: Yes Migraines: Yes Thyroid Disease: Yes (HYPOTHYROID) Tetanus Vaccination: < 5 Years Influenza Vaccination: Yes ?: Not LMP: 12/16/2017 Menopausal: No : 0 Para: 0 Miscarriage: 0 : 0 Past Surgical History Abdominal Surgery: Yes (APPENDECTOMY, GALLBLADDER) AICD: No Appendectomy: Yes Cardiac Surgery: No Cholecystectomy: Yes Ear Surgery: No Endocrine Surgery: No Eye Surgery: No Genitourinary Surgery: No Gynecologic Surgery: No Joint Replacement: No Neurologic Surgery: No Oral Surgery: No Pacemaker: No Thoracic Surgery: No Other Surgery: Yes (liver and kidney biopsy) Social History Alcohol Use: Yes (on occasion) Tobacco Use: No Substance Use: No Allergies-Medications (Allergen,Severity, Reaction): Coded Allergies: Rho(D) immune globulin (Verified Allergy, Severe, SEIZURES, 01/09/18) egg (Verified Allergy, Severe, HIVES/SWELLING, 01/09/18) ethinyl estradiol (Verified Allergy, Severe, Nausea/Vomiting, 01/09/18) levonorgestrel (Verified Allergy, Severe, Nausea/Vomiting, 01/09/18) Reported Meds & Prescriptions Reported Meds & Active Scripts Active Hydrocodone-Acetaminophen 5-325 mg Tab 1 Tab PO Q6H PRN Coumadin (Warfarin) 5 Mg Tab 5 Mg PO DAILY@1600 Reported Plaquenil (Hydroxychloroquine Sulfate) 200 Mg Tab 200 Mg PO BID Take with food Oxycodone (Oxycodone HCl) 5 Mg Tab 5 Mg PO Q4H PRN Qolkstvmvq-Wqcaiyykaxfor-Myzxqief 50-325-40 Mg Tab 1 Tab PO Q4H PRN Do not exceed 6 tablets/day. Ventolin Hfa 18 GM Inh (Albuterol Sulfate) 90 Mcg/Act Aer 2 Puff INH Q6H PRN Benazepril (Benazepril HCl) 20 Mg Tab 20 Mg PO DAILY Amlodipine (Amlodipine Besylate) 5 Mg Tab 5 Mg PO DAILY Metformin (Metformin HCl) 500 Mg Tab 1,000 Mg PO BIDPC Review of Systems Except as stated in HPI: all other systems reviewed are Neg Physical Exam Narrative GENERAL: SKIN: Warm and dry. HEAD: Atraumatic. Normocephalic. EYES: Pupils equal and round. No scleral icterus. No injection or drainage. ENT: No nasal bleeding or discharge. Mucous membranes pink and moist. Tongue is midline. No uvula deviation. NECK: Trachea midline. No JVD. CARDIOVASCULAR: Regular rate and rhythm. No murmurs, S3, S4. RESPIRATORY: No accessory muscle use. Clear to auscultation. Breath sounds equal bilaterally. GASTROINTESTINAL: Abdomen soft, non-tender, nondistended. Hepatic and splenic margins not palpable. MUSCULOSKELETAL: Extremities without clubbing, cyanosis, or edema. No obvious deformities. Full range of motion of the upper and lower extremities bilaterally. 2+ pulses bilaterally. NEUROLOGICAL: Awake and alert. No obvious cranial nerve deficits. Motor grossly within normal limits. Five out of 5 muscle strength in the arms and legs. Normal speech. PSYCHIATRIC: Appropriate mood and affect; insight and judgment normal. Data Data Last Documented VS Vital Signs Date Time Temp Pulse Resp B/P (MAP) Pulse Ox O2 Delivery O2 Flow Rate FiO2 01/09/18 22:28 92 18 127/66 (86) 100 Room Air 01/09/18 20:10 98.8 Orders Orders Electrocardiogram (01/09/18 20:28) Complete Blood Count With Diff (01/09/18 20:28) Comprehensive Metabolic Panel (01/09/18 20:28) Prothrombin Time / Inr (Pt) (01/09/18 20:28) Act Partial Throm Time (Ptt) (01/09/18 20:28) Lipase (01/09/18 20:28) Chest, Single Ap (01/09/18 20:28) Iv Access Insert/Monitor (01/09/18 20:28) Ecg Monitoring (01/09/18 20:28) Oximetry (01/09/18 20:28) Hydromorphone Pf Inj (Dilaudid Pf Inj) (01/09/18 20:30) Metoclopramide Inj (Reglan Inj) (01/09/18 20:30) Ct Pulmonary Angiogram (01/09/18 ) Hydromorphone Pf Inj (Dilaudid Pf Inj) (01/09/18 20:45) Sodium Chlor 0.9% 1000 Ml Inj (Ns 1000 M (01/09/18 21:30) Diphenhydramine Inj (Benadryl Inj) (01/09/18 21:45) Iodixanol 320 Inj (Rad Ct) (Visipaque 32 (01/09/18 19:59) Ed Discharge Order (01/09/18 22:57) Labs Laboratory Tests Test 01/09/18 20:36 White Blood Count 10.4 TH/MM3 Red Blood Count 5.46 MIL/MM3 Hemoglobin 15.0 GM/DL Hematocrit 44.6 % Mean Corpuscular Volume 81.8 FL Mean Corpuscular Hemoglobin 27.5 PG Mean Corpuscular Hemoglobin Concent 33.7 % Red Cell Distribution Width 15.2 % Platelet Count 369 TH/MM3 Mean Platelet Volume 7.6 FL Neutrophils (%) (Auto) 59.8 % Lymphocytes (%) (Auto) 27.3 % Monocytes (%) (Auto) 7.3 % Eosinophils (%) (Auto) 4.9 % Basophils (%) (Auto) 0.7 % Neutrophils # (Auto) 6.2 TH/MM3 Lymphocytes # (Auto) 2.8 TH/MM3 Monocytes # (Auto) 0.8 TH/MM3 Eosinophils # (Auto) 0.5 TH/MM3 Basophils # (Auto) 0.1 TH/MM3 CBC Comment DIFF FINAL Differential Comment Prothrombin Time 14.2 SEC Prothromb Time International Ratio 1.4 RATIO Activated Partial Thromboplast Time 50.2 SEC Blood Urea Nitrogen 25 MG/DL Creatinine 1.62 MG/DL Random Glucose 75 MG/DL Total Protein 8.1 GM/DL Albumin 3.8 GM/DL Calcium Level 8.7 MG/DL Alkaline Phosphatase 94 U/L Aspartate Amino Transf (AST/SGOT) 25 U/L Alanine Aminotransferase (ALT/SGPT) 44 U/L Total Bilirubin 0.4 MG/DL Sodium Level 140 MEQ/L Potassium Level 4.3 MEQ/L Chloride Level 108 MEQ/L Carbon Dioxide Level 20.5 MEQ/L Anion Gap 12 MEQ/L Estimat Glomerular Filtration Rate 39 ML/MIN Lipase 244 U/L [facility] Medical Decision Making Medical Screen Exam Complete: Yes Emergency Medical Condition: Yes Medical Record Reviewed: Yes Interpretation(s) CBC & BMP Diagram 01/09/18 20:36 Total Protein 8.1, Albumin 3.8, Calcium Level 8.7, Alkaline Phosphatase 94, Aspartate Amino Transf (AST/SGOT) 25, Alanine Aminotransferase (ALT/SGPT) 44, Total Bilirubin 0.4 Last Impressions Chest X-Ray 01/09/182027 Signed Impressions: CONCLUSION: Minimal basilar atelectasis. No consolidation or effusion. CT Angiography 01/09/18 0000 Signed Impressions: CONCLUSION: 1. No acute pulmonary emboli. Minimal residual linear filling defect on the ri ght at the location of a previous large embolus in July 2017. troponin and CKMB negative EKG shows sinus tachycardia but no sign of acute ischemia or arrhythmia. read by me and attending. Differential Diagnosis Pulmonary embolism versus pleurisy versus chest pain versus typical chest pain versus ACS Narrative Course 27-year-old female that presents to the ED for evaluation of right upper quadrant abdominal pain. Patient was properly examined and was found to have signs and symptoms of unclear etiology but deafly concerning for PE. She does have significant history for this. Patient really on Coumadin. Labs and imaging order. Coumadin level is below 2. Some concern for PE noted. She is also tachycardic. Labs and imaging order. CT order. Case discussed with my attending who agrees with plan. Labs and imaging showed no sign of acute disease. Unclear etiology of the pain but could be related to pleurisy. Pain gets worse with deep breaths. This time I think is reasonable for patient to follow-up outpatient. She will given a short prescription for pain medication. Case was discussed with my attending Dr. Aguirre who was made aware of findings and agrees with plan. Told to follow-up with PCP. See ED if worsening symptoms. Diagnosis Primary Impression: Pleurisy Additional Impression: Atypical chest pain Patient Instructions: General Instructions, Narcotic given in the ED Departure Forms: Tests/Procedures, Work Release Enter return to work date: Jan 12, 2018 Additional Instructions: Take medications as prescribed. Follow-up with PCP this week. Your INR today was 1.4. See ED for any worsening symptoms. Do not drink or drive while taking pain medication. Apply ice or heat as needed for pain Med/Other Pt SpecificInfo: Prescription(s) given Scripts Hydrocodone-Acetaminophen (Hydrocodone-Acetaminophen) 5-325 mg Tab 1 TAB PO Q6H Y for PAIN, #12 TAB 0 Refills Prov: Emilia Aguirre MD 01/09/18 Disposition: 01 DISCHARGE HOME Condition: Stable Corky Askew Jan 09, 2018 21:21
[2018-01-09 21:27] LABS: ALKALINE PHOSPHATASE 94 U/L (45-117); TOTAL BILIRUBIN ADULT 0.4 MG/DL (0.2-1.0); TOTAL PROTEIN 8.1 GM/DL (6.4-8.2)
[2018-01-09] MEDS ORDERED: SODIUM CHLOR 0.9% 1000 ML INJ 1,000 ML IV ONE (21:30)
[2018-01-09] MEDS ORDERED: diphenhydrAMINE HCL 50 MG/ML VIAL IV PUSH ONE (21:45)
[2018-01-09 22:28] VITALS: BP 127/66; PULSE 92; RESP 18; O2SAT 100
--- NOTE | 2018-01-09 22:38 | RADRPT ---
EXAM DATE: 01/09/2018 10:30 PM EDT AGE/SEX: 27 years / Female INDICATIONS: Right sided chest pain. History of emboli. CLINICAL DATA: This is the patient's initial encounter. Patient reports that signs and symptoms have been present for 1 day and indicates a pain score of 7/10. MEDICAL/SURGICAL HISTORY: Cardiovascular disease. Hypertension. Gastroesophageal reflux disease. Lupus Appendectomy. Cholecystectomy. RADIATION DOSE: 6.00 CTDI (mGy) COMPARISON: [facility] [place] PULMONARY ANGIOGRAM, 07/12/2017. . TECHNIQUE: Volumetric scanning was performed using a multi-row detector CT scanner during bolus infu radames of 60 ml Visipaque 320 (iodixanol) nonionic water-soluble contrast as a single exam dose. The d rosanna was post processed with a variety of visualization algorithms including full volume maximum inten sity projection and sliding thin slab reformation. Using automated exposure control and adjustment o f the mA and/or kV according to patient size, radiation dose was kept as low as reasonably achievable to obtain optimal diagnostic quality images. FINDINGS: No acute pulmonary emboli. There is a minimal residual linear filling defect in the distal right pulm onary artery at the location of a previous large embolus. Minimal basilar atelectasis or scarring. No pleural pericardial effusion. No hilar, mediastinal or axillary adenopathy. No acute findings in the upper abdomen. CONCLUSION: 1. No acute pulmonary emboli. Minimal residual linear filling defect on the right at the location of a previous large embolus in July 2017. Electronically signed by: Sam Bolton MD 01/09/2018 10:37 PM EDT
[2018-01-09] MEDS ORDERED: HYDR-3516 PO (22:43)
[2018-01-10] MEDS ORDERED: ROBA500T PO (11:37)
--- NOTE | 2018-01-10 14:46 | EKG ---
Date Performed: 01/09/2018 Time Performed: 20:26:18 PTAGE: 27 years EKG: SINUS TACHYCARDIA ABNORMAL RHYTHM ECG Since the PREVIOUS TRACING , no significant change noted PREVIOUS TRACING; 10/12/2017 @14.05 DOCTOR: Roscoe Dalal Interpretating Date/Time 01/10/2018 14:45:20
== END 2018-01-09 23:09 | disposition home or self-care (01) ==
LOC: NEPC 19:58
DX: R09.1 Pleurisy (principal); R07.89 Other chest pain; R00.0 Tachycardia, unspecified; E06.3 Autoimmune thyroiditis; J45.909 Unspecified asthma, uncomplicated; M32.9 Systemic lupus erythematosus, unspecified; Q61.3 Polycystic kidney, unspecified; Z86.711 Personal history of pulmonary embolism; Z88.8 Allergy status to other drugs, medicaments and biological substances; Z79.01 Long term (current) use of anticoagulants; Z79.899 Other long term (current) drug therapy
CPT/HCPCS: 71045; 71275; 80053; 83690; 85025; 85610; 85730; 93005; 96361; 96374; 96375; 99285; J1170; J1200; J2765; J7030; Q9967

== ENCOUNTER 2018-01-17 06:35 | Day surgery (SDC) | payer OTHER ==
[2018-01-17] VITALS (10 sets, daily range): BP systolic 99–123; BP diastolic 57–70; PULSE 70–97; RESP 18–20; TEMP 98.4–98.7; O2SAT 84–99
[~2018-01-17] VITALS: Ht 160 cm; Wt 95.0 kg
[~2018-01-17 06:35] MED LIST changes: -ENOX100P SQ; -HYDR-3366 PO; +HYDR-3516 PO; +OXYC-392 PO; +PLAQ200T PO; -PRED10 PO; +ROBA500T PO
[2018-01-17] MEDS ORDERED: LIDOCAINE HCL 1% 10 ML VIAL SQ ONE (06:36)
[2018-01-17] MEDS ORDERED: ENOX100P SQ (07:24)
[2018-01-17] MEDS ORDERED: MIDAZOLAM HCL 5 MG/5 ML VIAL ONE (07:27)
[2018-01-17] MEDS ORDERED: fentaNYL CITRATE 250 MCG/5 ML AMP ONE (07:27)
[2018-01-17] MEDS ORDERED: SODIUM CHLOR 0.9% 1000 ML INJ 1,000 ML IV SCH (07:45)
[2018-01-17 08:36] LABS: INTERNATIONAL NORMALIZED RATIO 1.1 RATIO; PROTHROMBIN TIME - PATIENT 10.8 SEC (9.8-11.6)
[2018-01-17] MEDS ORDERED: THROMBIN (TOPICAL) 5,000 UNIT VIAL ONE (08:57)
--- NOTE | 2018-01-17 09:50 | RADRPT ---
EXAM DATE: 01/17/2018 9:39 AM EDT AGE/SEX: 27 years / Female INDICATIONS: History of lupus with elevated creatinine. CLINICAL DATA: This is the patient's initial encounter. Patient reports that signs and symptoms have been present for 1 day and indicates a pain score of 0/10. MEDICAL/SURGICAL HISTORY: Lupus. nephritis None. COMPARISON: No prior exams available for comparison. BIOPSY SITE: Right renal 4mg midazolam (Versed) IV 100mcg fentanyl (Sublimaze) IV DEVICE(S): 18 gauge BioPince needle . . PROCEDURE: CT guided Right renal biopsy Prior to the procedure informed consent was obtained. Any appropriate prior imaging studies were rev iewed. Using automated exposure control and adjustment of the mA and/or kV according to patient size, radiat ion dose was kept as low as reasonably achievable to obtain optimal diagnostic quality images. DICOM format image data is available electronically for review and comparison. The site was prepped in a sterile fashion. Full sterile technique was used, including cap, mask, ryan rile gloves and gown and a large sterile sheet. Hand hygiene and 2% chlorhexidine and/or betadine/al cohol prep was utilized per protocol for cutaneous antisepsis. The skin and subcutaneous tissues wer e infiltrated with local anesthetic solution. Under CT guidance lower pole was localized. 16-gauge blunt needle was placed down to the renal cortex and 18-gauge core obtained. Tract was embolized with Gelfoam and thrombin without hemorrhage.. The patient tolerated the procedure well and there were no complications. The patient was returned to the Radiology Outpatient Unit in stable condition. CONCLUSION: 1. Uncomplicated CT guided biopsy of the right kidney. 2. Track was embolized with Gelfoam and thrombin. Electronically signed by: Brian Ballesteros MD 01/17/2018 9:48 AM EDT
[2018-01-17 10:06] LABS: AUTOMATED NEUTROPHIL # 5.2 TH/MM3 (1.8-7.7); BASOPHIL # 0.1 TH/MM3 (0-0.2); BASOPHIL % 1.1 % (0.0-2.0); EOSINOPHIL # 0.3 TH/MM3 (0-0.4); EOSINOPHIL % 3.9 % (0.0-4.0); HEMATOCRIT 40.3 % (35.0-46.0); HEMOGLOBIN 13.3 GM/DL (11.6-15.3); LYMPH % 23.5 % (9.0-44.0); LYMPHOCYTE # 1.9 TH/MM3 (1.0-4.8); MEAN CORPUSCULAR HEMOGLOBIN 27.5 PG (27.0-34.0); MEAN CORPUSCULAR HGB CONC 33.1 % (32.0-36.0); MEAN PLATELET VOLUME 7.3 FL (7.0-11.0); MONO % 7.5 % (0.0-8.0); MONOCYTE # 0.6 TH/MM3 (0-0.9); PLATELET COUNT 359 TH/MM3 (150-450); RED BLOOD COUNT 4.85 MIL/MM3 (4.00-5.30); RED CELL DISTRIBUTION WIDTH 15.8 % (11.6-17.2); WHITE BLOOD COUNT 8.2 TH/MM3 (4.0-11.0)
[2018-01-17] MEDS ORDERED: diphenhydrAMINE HCL 50 MG CAP PO ONE (10:15)
[2018-01-17 11:56] LABS: AUTOMATED NEUTROPHIL # 5.4 TH/MM3 (1.8-7.7); BASOPHIL # 0.1 TH/MM3 (0-0.2); BASOPHIL % 1.3 % (0.0-2.0); EOSINOPHIL # 0.4 TH/MM3 (0-0.4); EOSINOPHIL % 4.5 % (0.0-4.0); HEMATOCRIT 41.2 % (35.0-46.0); HEMOGLOBIN 13.7 GM/DL (11.6-15.3); LYMPH % 25.9 % (9.0-44.0); LYMPHOCYTE # 2.2 TH/MM3 (1.0-4.8); MEAN CELL VOLUME 82.4 FL (80.0-100.0); MEAN CORPUSCULAR HEMOGLOBIN 27.4 PG (27.0-34.0); MEAN CORPUSCULAR HGB CONC 33.3 % (32.0-36.0); MEAN PLATELET VOLUME 7.3 FL (7.0-11.0); MONO % 6.1 % (0.0-8.0); MONOCYTE # 0.5 TH/MM3 (0-0.9); NEUT % 62.2 % (16.0-70.0); PLATELET COUNT 389 TH/MM3 (150-450); RED CELL DISTRIBUTION WIDTH 15.4 % (11.6-17.2); WHITE BLOOD COUNT 8.7 TH/MM3 (4.0-11.0)
== END 2018-01-17 15:05 | disposition home or self-care (01) ==
LOC: HRAD 06:35 → HRIP 06:37 → HRAD 15:05
PROVIDERS: ATTEND Family Medicine
DX: M32.14 Glomerular disease in systemic lupus erythematosus (principal); I10 Essential (primary) hypertension; Z79.01 Long term (current) use of anticoagulants
CPT/HCPCS: 50200; 77012; 85025; 85610; 85730; 99151; 99153; J2250; J3010; J7030; Q0163